=== PATIENT | female | born 1945 | race African-American/Black ===

== ENCOUNTER 2021-06-15 06:00 | Inpatient (IN) | payer OTHER, MEDICAID ==
[~2021-06-15] VITALS: Ht 154.9 cm; Wt 88.5 kg
[2021-06-15 06:00] VITALS: BP 94/48
--- NOTE | 2021-06-15 06:00 | NUR ---
PT JOY FOWLERS. TAKEN TO BED 4
--- NOTE | 2021-06-15 06:00 | NUR ---
JOY FROM [facility] FOR ALOC PATIENT ON SEEN HAD BLOOD SUGAR OF 26 WITH A RECHECK OF 32 PER EMS. AAOX4. GCS 15. PATIENT GIVEN D 10 FROM IV INSERT OF 18G TO THE RIGHT WRIST BY PARAMEDICS. BLOOD SUGAR AT 112 UPON ARRIVAL TO ED. PT. RATES 0/10 ON THE PAIN SCALE AT THIS TIME. DENIES N/V/D; SKIN IS PINK/WARM/DRY; AAOX4 WITH EVEN AND STEADY GAIT; HR EVEN AND REGULAR; PT DENIES ANY FEVER, CP, SOB, OR COUGH AT THIS TIME; VSS; PATIENT POSITIONED FOR COMFORT; HOB ELEVATED; BEDRAILS UP X2; BED DOWN. ER MD MADE AWARE OF PT STATUS. PMH: DM, ACUTE ENCEPHALOPATHY, CHF, HTN, DYSPHAGIA, ACUTE RESPIRATORY FAILURE ALLERGIES: PENICILLINS
--- NOTE | 2021-06-15 06:00 | NUR ---
Dr. Petty examining patient.
--- NOTE | 2021-06-15 06:10 | NUR ---
LAB AT BEDSIDE
--- NOTE | 2021-06-15 06:16 | NUR ---
EKG PERFORMED AT BEDSIDE. EKG READS SINUS RHYTHM @ 54
--- NOTE | 2021-06-15 06:16 | NUR ---
EKG AT BEDSIDE
[2021-06-15 06:20] LABS: BASOPHILS % (AUTO) 0.3 % (0.0-2.0); EOSINOPHILS % (AUTO) 0.6 % (0.0-4.0); HEMOGLOBIN 9.7 g/dL (12.0-16.0); LYMPHOCYTES # (AUTO) 0.8 K/uL (2.5-16.5); LYMPHOCYTES % (AUTO) 15.1 % (20.5-51.1); MEAN CORPUSCULAR HEMOGLOBIN 31 pg (27-31); MEAN CORPUSCULAR HGB CONC 31 g/dL (33-37); MEAN CORPUSCULAR VOLUME 97.9 fL (80-94); MONOCYTES # (AUTO) 0.4 K/uL (0.8-1.0); MONOCYTES % (AUTO) 6.6 % (1.7-9.3); NEUTROPHILS # (AUTO) 4.3 K/uL (1.8-7.7); NEUTROPHILS % (AUTO) 77.4 % (42.2-75.2); PLATELET COUNT (AUTO) 153 K/uL (140-450); RED BLOOD CELL COUNT(AUTO) 3.17 MIL/uL (4.20-5.40); RED CELL DISTRIBUTION WIDTH 18.8 % (11.6-13.7); WHITE BLOOD COUNT (AUTO) 5.5 K/uL (4.8-10.8)
--- NOTE | 2021-06-15 06:40 | NUR ---
PT. DESATTING AT 87% ON ROOM AIR, PLACED ON 2L NC. PT. SP02 AT 99% ON 2L NC. PT. STATES "SHE [place] [facility] [place]
--- NOTE | 2021-06-15 06:42 | NUR ---
XRAY AT BEDSIDE
[2021-06-15 06:51] LABS: ANION GAP 10.1 (8-16); ASPARTATE AMINOTRANSFERASE 30 U/L (15-37); CARBON DIOXIDE 29.6 mmol/L (21-32); CHLORIDE 98 mmol/L (98-107); GLUCOSE 128 mg/dL (74-106); POTASSIUM 3.7 mmol/L (3.5-5.1); SODIUM SERUM 134 mmol/L (136-145); TOTAL BILIRUBIN 0.5 mg/dL (0.0-1.0); UREA NITROGEN, BLOOD 31 mg/dL (7-18)
[2021-06-15 06:58] LABS: CREATININE 4.1 mg/dL (0.6-1.3)
--- NOTE | 2021-06-15 07:10 | NUR ---
REPORT GIVEN TO ELIE ZAZUETA. TRANSFER OF CARE AT THIS TIME.
[2021-06-15] MEDS ORDERED: DEXTROSE 50% 50 ML SYR IVP ONE (07:30)
--- NOTE | 2021-06-15 10:15 | NUR ---
PEDIATRIC URINE CATH 8 FR, PT TOLERATED WELL. URINE WAS SENT TO LAB, LEFT WITH ROSE PHLEB. DIAPER WAS DRY AND CLEAN. 100ML URINE COLLECTED, CLOUDY YELLOW/BROWN.
[2021-06-15] MEDS ORDERED: cefTRIAXone 1,000 MG VIAL ONE (10:30)
--- NOTE | 2021-06-15 10:42 | NUR ---
GREG SWABBED AND SENT TO LAB
[2021-06-15 11:18] LABS: BILIRUBIN,URINE NEGATIVE (NEGATIVE); BLOOD, URINE 1+ (NEGATIVE); NITRITE, URINE NEGATIVE (NEGATIVE); PH,URINE 5.5 (5.0-9.0); UGLUCOSE NEGATIVE (NEGATIVE)
[2021-06-15 11:31] LABS: APPEARANCE,URINE CLOUDY (CLEAR); COLOR,URINE BROWN (YELLOW)
[2021-06-15 11:40] LABS: LEUKOCYTE ESTERASE ,URINE 2+ (NEGATIVE)
[2021-06-15 11:42] LABS: WBC,URINE TOO MANY TO COUNT /HPF (0-5)
[2021-06-15 11:43] LABS: URINE AMORPHOUS URATE 2+ /HPF (None Seen)
[2021-06-15] MEDS ORDERED: ONDANSETRON 4 MG/2 ML VIAL IVP PRN (12:15)
[2021-06-15] MEDS ORDERED: ACETAMINOPHEN 325 MG TAB PO PRN (12:15)
[2021-06-15] MEDS ORDERED: DOCUSATE SODIUM 100 MG GELCAP PO PRN (12:15)
[2021-06-15] MEDS ORDERED: ZOLPIDEM 5 MG TAB PO PRN (12:15)
[2021-06-15] MEDS ORDERED: LORazepam 2 MG/ML VIAL IM/IVP PRN (12:15)
[2021-06-15] MEDS ORDERED: MORPHINE SULFATE 2 MG/ML SYR IVP PRN (12:15)
--- NOTE | 2021-06-15 12:23 | NUR ---
PT EATING LUNCH AT THIS TIME.
[2021-06-15 12:36] LABS: PROTHROMBIN TIME 12.2 secs (10.8-13.4)
[2021-06-15] MEDS: NACL 0.9% 1,000 ML IV SCH ×2 (12:39→22:30)
[2021-06-15] MEDS ORDERED: FUROSEMIDE 20 MG/2 ML VIAL IVP SCH (13:00)
[2021-06-15] MEDS ORDERED: INSULIN LISPRO SLIDING SCALE 100 UNITS/ML VIAL SUBQ PRN (13:05)
[2021-06-15] MEDS ORDERED: DEXTROSE 50% 50 ML SYR IVP PRN (13:05)
[2021-06-15 13:13] LABS: CHOL/HDL RATIO 2.1 (1-4.5); FREE T4 (FREE THYROXINE) 0.72 ng/dL (0.76-1.46); MAGNESIUM 2.3 mg/dL (1.8-2.4); PHOSPHORUS 4.1 mg/dL (2.5-4.9); THYROID STIMULATING HORMONE 12.81 uIU/mL (0.34-3.74)
--- NOTE | 2021-06-15 13:21 | NUR ---
Called [facility] and spoke to Julianne to obtain plate former information. Julianne gave me [facility] in [place] phone number to call. Glass Laminating Operator- Dr. Joel
--- NOTE | 2021-06-15 13:21 | NUR ---
Pt returned from CT scan.
[2021-06-15] MEDS: DOCUSATE SODIUM 100 MG GELCAP PO SCH (13:36)
--- NOTE | 2021-06-15 14:40 | NUR ---
PT DIAPER WAS CHANGED, PT IS CLEAN AND DRY AT THIS TIME.
--- NOTE | 2021-06-15 15:15 | NUR ---
Dr. Arredondo is evaluating the patient at bedside.
[2021-06-15 15:20] VITALS: BP 147/74
--- NOTE | 2021-06-15 15:23 | NUR ---
RECEIVED REPORT FROM ER NURSE FOR CONTINUITY OF CARE PLAN.
--- NOTE | 2021-06-15 15:24 | NUR ---
Patient will be admitted to care of SUKHDEV DOVER. Admited to TELEMETRY. Will go to room 113. Belongings list completed. Report to ABDIAZIZ DELGADILLO.
--- NOTE | 2021-06-15 15:40 | NUR ---
PT ARRIVED TO FLOOR VIA GURNEY. PT A&OX4. VITALS: TEMP 97.1, BP 147/74, HR 79, RR 16, O2 92 VIA 2L NC. PT ORIENTED TO ROOM, CALL LIGHT, BED, AND BATHROOM. PT ABLE TO MAKE NEEDS KNOWN.
[2021-06-15] MEDS ORDERED: MAGNESIUM CITRATE 300 ML BTL PO SCH (15:50)
[2021-06-15] MEDS: BLOOD GLUCOSE MONITORING 1 DEV DEV FS SCH ×2 (16:27→21:06)
--- NOTE | 2021-06-15 17:30 | NUR ---
DIALYSIS NURSE PRESENT IN ROOM.
--- NOTE | 2021-06-15 18:20 | NUR ---
PT STATES 10/10 ARTHRITIS PAIN IN RIGHT LEG, ARM, AND HAND. PT MEDICATED.
[2021-06-15] MEDS: HYDROcodone/APAP 5/325 MG 1 TAB TAB PO PRN (18:24)
--- NOTE | 2021-06-15 19:30 | NUR ---
ENDORSED PT TO TAKE AWAY WORKER NURSE. PT STABLE AT THIS TIME.
--- NOTE | 2021-06-15 19:30 | NUR ---
RECEIVED PATIENT FROM AM NURSE FOR CONTINUITY OF CARE. PATIENT IS A/A/O X4. RESPIRATORY EVEN AND UNLABORED, ON 2L NC, NO SIGN OF DISTRESS NOTED. SKIN WARM, DRY, NON DIAPHORETIC. IV ON RIGHT WRIST 18G, INTACT AND PATENT, IS INFUSING FLUID ORDER. TUNNEL CATH ON RIGHT ARM FOR HD, PATIENT ON HD MONITOR WITH DIALYSIS NURSE AT BEDSIDE. PLAN OF CARE DISCUSSED, PATIENT VERBALIZED UNDERSTANDING. HOB ELEVATED. PRECAUTION IN PLACE. CALL LIGHT WITHIN REACH. WILL CONTINUE TO MONITOR.
[2021-06-15 20:00] VITALS: BP 141/66
--- NOTE | 2021-06-15 20:30 | NUR ---
DIALYSIS COMPLETED, 2.5L OUTPUT, PATIENT IS NO SIGN OF DISTRESS NOTED. PRECAUTION IN PLACE. CALL LIGHT WITHIN REACH. WILL CONTINUE TO MONITOR.
[2021-06-15] MEDS ORDERED: APIXABAN 2.5 MG TAB PO SCH (21:00)
[2021-06-15] MEDS ORDERED: GABAPENTIN 300 MG CAP PO SCH (21:00)
--- NOTE | 2021-06-15 21:06 | NUR ---
BLOOD SUGAR CHECK 141, NO INSULIN GIVEN. SCHEDULE MEDICATIONS GIVEN WITH EDUCATION, PATIENT VERBALIZED UNDERSTANDING. PATIENT TOLERATED WELL. PRECAUTION IN PLACE. CALL LIGHT WITHIN REACH. WILL CONTINUE TO MONITOR.
[2021-06-15] MEDS: APIXABAN 2.5 MG TAB PO SCH (21:07)
[2021-06-15] MEDS: ATORVASTATIN 20 MG TAB PO SCH (21:07)
[2021-06-15] MEDS: GABAPENTIN 100 MG CAP PO SCH (21:07)
--- NOTE | 2021-06-15 23:20 | NUR ---
PATIENT TRANSFER TO CT BY FILIPE.
--- NOTE | 2021-06-15 23:36 | NUR ---
PATIENT RETURNED FROM CT SCAN.
[2021-06-16] VITALS: BP 123/63
[2021-06-16] MEDS: HYDROcodone/APAP 5/325 MG 1 TAB TAB PO PRN (01:42)
--- NOTE | 2021-06-16 01:42 | NUR ---
PATIENT COMPLAINS ARTHRITIS PAIN ON HER SHOULDER AND LEGS, PAIN MEDICATION PRN GIVEN WITH EDUCATION, PATIENT VERBALIZED UNDERSTANDING, NO SIGN OF DISTRESS NOTED. PRECAUTION IN PLACE. CALL LIGHT WITHIN REACH. WILL CONTINUE TO MONITOR.
--- NOTE | 2021-06-16 01:47 | NUR ---
PATIENT'S DAUGHTER- ALDO CALLED TO UPDATE PATIENT' CONDITION, ALL QUESTIONS WERE ANSWERED, WILL CONTINUE TO UPDATE.
--- NOTE | 2021-06-16 02:42 | NUR ---
PATIENT IS SLEEPING, CHEST RISE AND FALL, NO SIGN OF DISTRESS NOTED. PRECAUTION IN PLACE. CALL LIGHT WITHIN REACH. WILL CONTINUE TO MONITOR.
[2021-06-16 04:00] VITALS: BP 96/55
--- NOTE | 2021-06-16 04:00 | NUR ---
ROUND CHECK. PATIENT IS SLEEPING, CHEST RISE AND FALL, O2 SAT 100%, NO SIGN OF DISTRESS NOTED. PRECAUTION IN PLACE. CALL LIGHT WITHIN REACH. WILL CONTINUE TO MONITOR.
[2021-06-16] MEDS: BLOOD GLUCOSE MONITORING 1 DEV DEV FS SCH ×4 (06:46→21:00)
--- NOTE | 2021-06-16 06:46 | NUR ---
BLOOD SUGAR CHECK 108, NO INSULIN NEED TO COVER. PATIENT IS AWAKE, RESTING IN BED. NO SIGN OF DISTRESS NOTED. PRECAUTION IN PLACE. CALL LIGHT WITHIN REACH. WILL CONTINUE TO MONITOR.
[2021-06-16 07:02] LABS: ANION GAP 8.7 (8-16); CHLORIDE 100 mmol/L (98-107); CREATININE 3.6 mg/dL (0.6-1.3); GLUCOSE 115 mg/dL (74-106); POTASSIUM 3.7 mmol/L (3.5-5.1); SODIUM SERUM 135 mmol/L (136-145); UREA NITROGEN, BLOOD 25 mg/dL (7-18)
[2021-06-16 07:15] LABS: PHOSPHORUS 3.5 mg/dL (2.5-4.9)
--- NOTE | 2021-06-16 07:20 | NUR ---
ENDORSED PATIENT TO AM NURSE FOR CONTINUITY OF CARE. PATIENT IS STABLE.
--- NOTE | 2021-06-16 07:25 | NUR ---
RECEIVE REPORT FROM RECEPTION, PT. IN BED AWAKE AND ALERT COOPERATE AND FOLLOW COMMAND, SKIN DRY AND WARM TO TOUCH , DENIED PAIN IV ON RT WRIST #18 INFUSSING NS AT 100ML/HR .
[2021-06-16 07:26] LABS: BASOPHILS # (AUTO) 0.1 K/uL (0.00-0.22); BASOPHILS % (AUTO) 0.9 % (0.0-2.0); EOSINOPHILS # (AUTO) 0.1 K/uL (0-0.4); EOSINOPHILS % (AUTO) 1.7 % (0.0-4.0); HEMATOCRIT 28.4 % (36-48); LYMPHOCYTES # (AUTO) 0.9 K/uL (2.5-16.5); LYMPHOCYTES % (AUTO) 12.1 % (20.5-51.1); MEAN CORPUSCULAR HEMOGLOBIN 31 pg (27-31); MEAN CORPUSCULAR HGB CONC 32 g/dL (33-37); MEAN CORPUSCULAR VOLUME 97.5 fL (80-94); MONOCYTES # (AUTO) 0.5 K/uL (0.8-1.0); MONOCYTES % (AUTO) 6.3 % (1.7-9.3); NEUTROPHILS # (AUTO) 5.8 K/uL (1.8-7.7); PLATELET COUNT (AUTO) 172 K/uL (140-450); RED BLOOD CELL COUNT(AUTO) 2.91 MIL/uL (4.20-5.40); RED CELL DISTRIBUTION WIDTH 18.1 % (11.6-13.7); WHITE BLOOD COUNT (AUTO) 7.3 K/uL (4.8-10.8)
[2021-06-16 08:00] VITALS: BP 102/57
--- NOTE | 2021-06-16 09:07 | NUR ---
PATIENT HAS BEEN SCREENED AND CATEGORIZED HIGH NUTRITION RISK. PATIENT WILL BE SEEN WITHIN 1-2 DAYS OF ADMISSION. 06/16/21-06/17/21 [facility] CONSULT FOR WOUNDS/PRESSURE INJURIES HAS BEEN RECEIVED AND [facility] REFERRAL FOR UNCONTROLLED DIABETES WAS ALSO RECEIVED. EVER [address]
[2021-06-16] MEDS: NACL 0.9% 1,000 ML IV SCH ×3 (09:09→23:19)
[2021-06-16] MEDS: DOCUSATE SODIUM 100 MG GELCAP PO SCH (09:10)
[2021-06-16] MEDS: GABAPENTIN 100 MG CAP PO SCH ×2 (09:12→20:53)
[2021-06-16] MEDS: allopurinoL 100 MG TAB PO SCH (09:13)
[2021-06-16] MEDS: DULoxetine 30 MG CAPDR PO SCH (09:15)
[2021-06-16] MEDS: APIXABAN 2.5 MG TAB PO SCH ×2 (09:17→20:53)
--- NOTE | 2021-06-16 10:00 | NUR ---
AWAKK ALERT FOLLOW CAMMAND. EEG BEING DONE.
[2021-06-16 12:00] VITALS: BP 111/58
--- NOTE | 2021-06-16 13:13 | NUR ---
RECEIVED TORB FOR RENAL AND CCHO 60GM DIET WITH NEPHRO-DAVE DAILY FROM DR. SANTIZO.
--- NOTE | 2021-06-16 14:40 | NUR ---
06/16/21 RD INITIAL ASSESSMENT COMPLETED PLEASE REFER TO NUTRITION ASSESSMENT UNDER CARE ACTIVITY FOR ESTIMATED NUTRITIONAL NEEDS. 1. PENDING ST EVALUATION 2. RECOMMEND RENAL AND CCHO 60GM DIETARY RESTRICTIONS TOLERATED 3. RECOMMEND NEPHRO-DAVE ONCE DAILY 4. RD TO FOLLOW-UP 3-5 DAYS, MODERATE RISK EVER FRANKLIN, RD
--- NOTE | 2021-06-16 15:33 | NUR ---
DR. ACEVEDO AND PATIENT FAMILY AT BED SIDE. PT. DAUGHTER MISUNDERSTAND THAT PT WAS DISCHARGE WITH OUT INFOR HER . THE MATTER WAS CLEAR THE FAMILY IS UNDER STAND AND HAPPY NOW.
--- NOTE | 2021-06-16 17:00 | NUR ---
BLOOD GLUCOSE 143 NO INSULIN GIVEN.
[2021-06-16] MEDS ORDERED: SENNA 8.6 MG TAB PO SCH (17:10)
--- NOTE | 2021-06-16 18:30 | NUR ---
DINNER TOOK ABOUT 40% FEEL SLEEPY.
--- NOTE | 2021-06-16 19:20 | NUR ---
HER CONDITION WITH IN NORMAL LIMITMREPORT GIVE TO JOHAN DELGADILLO.
--- NOTE | 2021-06-16 19:21 | NUR ---
RECEIVED PATIENT FROM AM NURSE FOR CONTINUITY OF CARE. PATIENT IS SLEEPING, AROUSABLE TO VOICE. RESPIRATORY EVEN AND UNLABORED, ON 2L OXYGEN NC. NO SIGN OF DISTRESS NOTED. SKIN WARM, DRY, NON DIAPHORETIC. IV ON RIGHT WRIST 18G, INTACT AND PATENT, IS INFUSING FLUID ORDER. TUNNEL CATH NOTED ON RIGHT CHEST FOR HD. PATIENT DENIES ANY PAIN OR DISCOMFORT. ABLE TO MAKE NEEDS KNOWN. PLAN OF CARE DISCUSSED. PRECAUTION IN PLACE. CALL LIGHT WITHIN REACH. WILL CONTINUE TO MONITOR.
[2021-06-16 20:00] VITALS: BP 112/53
[2021-06-16] MEDS: ATORVASTATIN 20 MG TAB PO SCH (20:52)
--- NOTE | 2021-06-16 21:00 | NUR ---
BLOOD SUGAR CHECK 105, NO INSULIN NEEDS TO COVER. SCHEDULE MEDICATION GIVEN WITH EDUCATION. PATIENT VERBALIZED UNDERSTANDING. PATIENT TOLERATED WELL. PRECAUTION IN PLACE. CALL LIGHT WITHIN REACH. WILL CONTINUE TO MONITOR.
--- NOTE | 2021-06-16 22:00 | NUR ---
ROUND CHECK. PATIENT IS SLEEPING, CHEST RISE AND FALL, NO SIGN OF RESPIRATORY DISTRESS NOTED. PRECAUTION IN PLACE. CALL LIGHT WITHIN REACH. WILL CONTINUE TO MONITOR.
[2021-06-17] VITALS: BP 122/72
--- NOTE | 2021-06-17 | NUR ---
PATIENT IS SLEEPING, CHEST RISE AND FALL. NO SIGN OF DISTRESS NOTED. PRECAUTION IN PLACE. CALL LIGHT WITHIN REACH. WILL CONTINUE TO MONITOR.
--- NOTE | 2021-06-17 02:00 | NUR ---
PATIENT IS SLEEPING, CHEST RISE AND FALL, NO SIGN OF RESPIRATORY DISTRESS NOTED. HOB ELEVATED. CALL LIGHT WITHIN REACH. WILL CONTINUE TO MONITOR.
[2021-06-17 04:00] VITALS: BP 114/58
--- NOTE | 2021-06-17 04:00 | NUR ---
PATIENT IS SLEEPING, CHEST RISE AND FALL, NO SIGN OF RESPIRATORY DISTRESS NOTED, AROUSABLE TO VOICE. HOB ELEVATED. CALL LIGHT WITHIN REACH. WILL CONTINUE TO MONITOR
[2021-06-17 06:07] LABS: HEPATITIS A ANTIBODY IGM Negative (Negative); HEPATITIS B CORE AB TOTAL Negative (Negative); HEPATITIS B SURFACE ANTIBODY Non Reactive (.); HEPATITIS B SURFACE ANTIGEN Negative (Negative)
--- NOTE | 2021-06-17 06:30 | NUR ---
BLOOD SUGAR CHECK 64, PATIENT IS AWAKE, NO SIGN OF DISTRESS NOTED. 2 BOTTLE OF APPLE JUICE GIVEN, PATIENT TOLERATED WELL. WILL CONTINUE TO MONITOR.
[2021-06-17 07:00] LABS: BASOPHILS % (AUTO) 0.3 % (0.0-2.0); EOSINOPHILS # (AUTO) 0.1 K/uL (0-0.4); EOSINOPHILS % (AUTO) 1.6 % (0.0-4.0); HEMOGLOBIN 9.6 g/dL (12.0-16.0); LYMPHOCYTES # (AUTO) 0.9 K/uL (2.5-16.5); LYMPHOCYTES % (AUTO) 14.2 % (20.5-51.1); MEAN CORPUSCULAR HEMOGLOBIN 31 pg (27-31); MEAN CORPUSCULAR HGB CONC 31 g/dL (33-37); MEAN CORPUSCULAR VOLUME 97.8 fL (80-94); MONOCYTES # (AUTO) 0.5 K/uL (0.8-1.0); NEUTROPHILS # (AUTO) 5.2 K/uL (1.8-7.7); NEUTROPHILS % (AUTO) 76.9 % (42.2-75.2); PLATELET COUNT (AUTO) 143 K/uL (140-450); RED BLOOD CELL COUNT(AUTO) 3.16 MIL/uL (4.20-5.40); RED CELL DISTRIBUTION WIDTH 18.2 % (11.6-13.7); WHITE BLOOD COUNT (AUTO) 6.7 K/uL (4.8-10.8)
--- NOTE | 2021-06-17 07:02 | NUR ---
RECHECK BLOOD SUGAR 84, TRENDING UP. PATIENT ASKS FOR CRANBERRY JUICE, 2 BOTTLE GIVEN, NO SIGN OF DISTRESS NOTED. PRECAUTION IN PLACE. CALL LIGHT WITHIN REACH. WILL CONTINUE TO MONITOR.
--- NOTE | 2021-06-17 07:05 | NUR ---
ENDORSED PATIENT TO AM NURSE FOR CONTINUITY OF CARE. PATIENT IS STABLE.
--- NOTE | 2021-06-17 07:08 | NUR ---
RECEIVED REPORT FROM ORCHARD WORKER NURSE. NIGHT NURSE REPORTS PT STABLE, PT ON 2 L OXYGEN, AA&O X 4 WITH PERIODS OF CONFUSION, LAST BLOOD GLUCOSE WAS 84 @ 0700, LAST BM THIS MORNING, HAS IV IN RIGHT WRIST 18 GAUGE NS AT 40 ML, LINE IS PATENT. PT ALSO HAS RIGHT TUNNEL CATH IN RIGHT SIDE OF THE CHEST. NO URINE PRODUCED (ON DIALYSIS). ECHO SHOWED MILD DILATION IN LEFT VENTRICLE, LVEF AT 25%.
[2021-06-17 07:14] LABS: ANION GAP 12.4 (8-16); CARBON DIOXIDE 27.6 mmol/L (21-32); CHLORIDE 99 mmol/L (98-107); GLUCOSE 79 mg/dL (74-106); SODIUM SERUM 135 mmol/L (136-145); UREA NITROGEN, BLOOD 31 mg/dL (7-18)
[2021-06-17] MEDS: BLOOD GLUCOSE MONITORING 1 DEV DEV FS SCH ×4 (07:18→20:41)
[2021-06-17 07:21] LABS: MAGNESIUM 2.1 mg/dL (1.8-2.4); PHOSPHORUS 4.1 mg/dL (2.5-4.9)
--- NOTE | 2021-06-17 07:58 | NUR ---
RECEIVED REPORT FROM PHYSICAL THERAPIST. SHE STATES PT IS VERY DROWSY AND NEEDS ASSISTANCE TO SIT UP. SHE ALSO REPORTED BP OF 97/48. PHYSICAL THERAPIST UNABLE TO PERFORM PHYSICAL THERAPY AND WILL ATTEMPT LATER . WILL REASSESS VITALS AND CONTINUE TO MONITOR.
[2021-06-17] MEDS: DULoxetine 30 MG CAPDR PO SCH (08:57)
[2021-06-17] MEDS: GABAPENTIN 100 MG CAP PO SCH ×2 (08:57→20:37)
[2021-06-17] MEDS: VIT-B COMP/VIT-C/FOLIC ACID 1 TAB PO SCH (08:57)
[2021-06-17] MEDS: DOCUSATE SODIUM 100 MG GELCAP PO SCH (08:57)
[2021-06-17] MEDS: allopurinoL 100 MG TAB PO SCH (08:58)
[2021-06-17] MEDS: APIXABAN 2.5 MG TAB PO SCH ×2 (09:19→20:33)
--- NOTE | 2021-06-17 09:22 | NUR ---
ADMINISTERED 0900 MEDS. PATIENT TOLERATED WELL. WILL CONTINUE TO MONITOR.
--- NOTE | 2021-06-17 11:00 | NUR ---
PT ASKED TO BE CHANGED, HAD A LARGE BM. PT WAS CLEANED AND WOUND ON SACRUM WAS CLOSED AND CLEANED. PT STABLE. WILL CONTINUE TO MONITOR.
[2021-06-17 11:25] VITALS: BP 124/79
--- NOTE | 2021-06-17 11:25 | NUR ---
BLOOD SUGAR 94 MG/DL NO INSULIN COVERAGE GIVEN PT IS AWAKE AND RESTING NO DISTRESS NOTED. WILL CONTINUE TO MONITOR.
[2021-06-17 12:00] VITALS: BP 110/51
--- NOTE | 2021-06-17 12:00 | NUR ---
PATIENT SCHEDULED HEMODIALYSIS ONGOING AT THIS TIME PT IS STABLE.
--- NOTE | 2021-06-17 13:00 | NUR ---
PT WAS ASLEEP. IV PATENT AND RUNNING PER ORDERED. PT STABLE, BREATHING UNLABORED ON 2L NC. Addendum: 06/17/21 at 1856 by Jessy Napier RN RN WILL CONTINUE TO MONITOR.
--- NOTE | 2021-06-17 13:39 | NUR ---
HEMODIALYSIS ONGOING, HEPARIN 23290 UNITS GIVEN BY HEMODIALYSIS NURSE.
--- NOTE | 2021-06-17 15:10 | NUR ---
SPOKE TO DIALYSIS NURSE AND PT HAD 2.5 L OUTPUT. PT TOLERATED WELL, SHE IS TALKING AND DENIES ANY PAIN. WILL CONTINUE TO MONITOR.
[2021-06-17 16:00] VITALS: BP 103/49
--- NOTE | 2021-06-17 17:01 | NUR ---
BLOOD SUGAR 139 MG/DL NO INSULIN COVERAGE GIVEN PT IS RESTING
[2021-06-17] MEDS: NACL 0.9% 1,000 ML IV SCH (18:30)
--- NOTE | 2021-06-17 19:30 | NUR ---
ENDORSED TO NIGHT NURSE FOR CONTINUITY OF CARE.
--- NOTE | 2021-06-17 19:30 | NUR ---
RECEIVED REPORT FROM RN DAYSHIFT NURSE AT BEDSIDE FOR CONTINUITY OF CARE, PT IN STABLE CONDITION. PT IS SITTING UP IN BED AOX3 SHE HAS 2 LITERS VIA N/C. SHE HAS A TUNNEL CATHETER INTACT ON RIGHT UPPER CHEST. PT NOTED WITH NON PITTING EDEMA OF THE LEFT ARM AND BILATERAL LEGS. SHE HAS IV SITE ON RIGHT WRIST 18G RUNNING NORMAL SALINE AT 40MLS/HR. ALL FALLS PRECAUTIONS IN PLACE. PT HAS NO C/OP VOICED AT THIS TIME AND ALL FALLS PRECAUTIONS IN PLACE.
[2021-06-17 20:00] VITALS: BP 123/62
--- NOTE | 2021-06-17 20:20 | NUR ---
PT LYING IN BED, SHE IS AOX3 02 RUNNING AT 2LITERS VIA N/C. FINGERSTICK IS 148, NO NEED FOR HUMALOG COVERAGE. OTHER V/S FOLLOWS: T 99.6 P 95 R 16 B/P 123/62 02 98% WITH 2 LITERS VIA N/C. NORMAL SALINE CONTINUES AT 40MLS/HR. ALL FALLS PRECAUTIONS IN PLACE.
[2021-06-17] MEDS: ATORVASTATIN 20 MG TAB PO SCH (20:37)
[2021-06-17] MEDS ORDERED: traMADol 50 MG TAB PO PRN ×2 (20:50→21:15)
--- NOTE | 2021-06-17 21:45 | NUR ---
PT GIVEN ORDERED ELIQUIS, LIPITOR AND NEURONTIN. EDUCATION REGARDING PT MEDICATION PROVIDED AT BEDSIDE, PT VERBALIZED UNDERSTANDING. PT DECLINED COOLING MEASURES FOR INCREASED TEMPERATURE. PT ALSO C/O GENERALIZED PAIN AND REQUESTED TRAMADOL 50MG. PT DECLINED OFFERED NORCO 5/325MG SHE SAID IT WAS TOO STRONG. WILL CONTACT PRIMARY CARE NURSE PRACTITIONER MD FOR PRIMARY MD SANTIZO. ALL FALLS PRECAUTIONS IN PLACE.
--- NOTE | 2021-06-17 22:00 | NUR ---
TEXTED MD CAMPBELL REMOTE RECRUITER FOR ALVERTO RIDER TO ORDER TRAMADOL 50MG BID. GIVEN PT REQUEST PAIN MEDICATION WELL TURNED, CHANGED AND REPOSITIONED. SHE HAD A SMALL LOOSE BOWEL MOVEMENT. ALL FALLS PRECAUTIONS IN PLACE.
--- NOTE | 2021-06-17 22:30 | NUR ---
PT ASLEEP IN BED N/S RUNNING AT 40MLS/HR ORDERED N/C IN PLACE, PT HAS NO S/S OF PAIN OR DISTRESS NOTED.
[2021-06-18] VITALS: BP 124/58
[2021-06-18] MEDS: HYDROcodone/APAP 5/325 MG 1 TAB TAB PO PRN (00:31)
--- NOTE | 2021-06-18 00:37 | NUR ---
PT IN BED, SHE DECLINED TO BE REPOSITIONED IN BED V/S FOLLOWS: T 97.8 P 95 R 16 B/P 124/58 02 97% WITH 2 LITERS VIA N/C. PT ALSO C/O MODERATE PAIN IN HER FEET AND HEELS. GIVEN 1 TAB NORCO 5/325MG. DECLINED ANY SNACKS AT THIS TIME, ALL FALLS PRECAUTIONS IN PLACE.
--- NOTE | 2021-06-18 02:00 | NUR ---
PT WAS REPOSITIONED IN BED NO C/O VOICED FLUIDS RUNNING ORDERED, ALL ORDERED PRECAUTIONS IN PLACE.
--- NOTE | 2021-06-18 02:00 | NUR ---
PT SITTING UP IN BED, HE SAID HE WAS COMFORTABLE AND DECLINED TO LAY DOWN AT THIS TIME. Addendum: 06/18/21 at 0708 by Kat Thoa RN WRONG CHART/WRONG PT
[2021-06-18 04:00] VITALS: BP 122/52
--- NOTE | 2021-06-18 06:00 | NUR ---
PT WAS TURNED AND REPOSITIONED IN BED, NO C/O VOICED. N/S RUNNING AT 40MLS/HR ORDERED. IV SITE INTACT ALL ORDERED PRECAUTIONS IN PLACE.
[2021-06-18 06:57] LABS: BASOPHILS # (AUTO) 0.2 K/uL (0.00-0.22); BASOPHILS % (AUTO) 3.8 % (0.0-2.0); EOSINOPHILS # (AUTO) 0.1 K/uL (0-0.4); EOSINOPHILS % (AUTO) 1.1 % (0.0-4.0); HEMATOCRIT 28.3 % (36-48); HEMOGLOBIN 8.9 g/dL (12.0-16.0); LYMPHOCYTES # (AUTO) 0.6 K/uL (2.5-16.5); LYMPHOCYTES % (AUTO) 9.6 % (20.5-51.1); MEAN CORPUSCULAR HEMOGLOBIN 31 pg (27-31); MEAN CORPUSCULAR HGB CONC 31 g/dL (33-37); MEAN CORPUSCULAR VOLUME 97.3 fL (80-94); MONOCYTES # (AUTO) 0.3 K/uL (0.8-1.0); MONOCYTES % (AUTO) 4.2 % (1.7-9.3); NEUTROPHILS # (AUTO) 4.9 K/uL (1.8-7.7); NEUTROPHILS % (AUTO) 81.3 % (42.2-75.2); RED BLOOD CELL COUNT(AUTO) 2.91 MIL/uL (4.20-5.40); RED CELL DISTRIBUTION WIDTH 17.9 % (11.6-13.7); WHITE BLOOD COUNT (AUTO) 6.1 K/uL (4.8-10.8)
[2021-06-18 07:03] LABS: ANION GAP 8.4 (8-16); CARBON DIOXIDE 28.7 mmol/L (21-32); CHLORIDE 99 mmol/L (98-107); CREATININE 3.6 mg/dL (0.6-1.3); GLUCOSE 120 mg/dL (74-106); POTASSIUM 4.1 mmol/L (3.5-5.1); SODIUM SERUM 132 mmol/L (136-145); UREA NITROGEN, BLOOD 28 mg/dL (7-18)
--- NOTE | 2021-06-18 07:15 | NUR ---
RECEIVED PATIENT FROM COLLECTION MANAGER NURSE AT BEDSIDE FOR CONTINUITY OF CARE. PATIENT SLEEPING COMFORTABLY IN BED, RESPIRATIONS EVEN AND UNLABORED ON 2L O2 VIA NC. FLACC-0. IV SITE INTACT, ASYMPTOMATIC, PATENT, INFUSING IVF WELL. BED ALARM ON, BED ON LOWEST SETTING WITH BRAKES ON, CALL LIGHT WITHIN REACH, WILL CONTINUE TO MONITOR PATIENT.
[2021-06-18 07:35] LABS: PLATELET COUNT (AUTO) 127 K/uL (140-450)
[2021-06-18] MEDS: BLOOD GLUCOSE MONITORING 1 DEV DEV FS SCH ×2 (07:36→12:21)
--- NOTE | 2021-06-18 08:10 | NUR ---
PATIENT'S DAUGHTER CALLED. UPDATED HER ON PATIENT'S STATUS. SHE VERBALIZED UNDERSTANDING AND SAID SHE WILL CALL BACK LATER TO CHECK UP ON HER.
--- NOTE | 2021-06-18 08:15 | NUR ---
REPORT GIVEN TO RN HANS AT BEDSIDE FOR CONTINUITY OF CARE. PATIENT SLEEPING COMFORTABLY IN BED.
--- NOTE | 2021-06-18 08:20 | NUR ---
REPORT RECEIVED FROM HARVINDER RN, PT AAOX2-3, SPEAKS CLEARLY, OCCASIONALLY CONFUSED, RESP EVEN UNLABORED ON 2L O2 NC, SKIN WARM DRY COLOR WNL, CAP REFILL <3SEC, PIV 18G TO R WRIST, NS AT 40ML/HR, SITE WNL, RIGHT SUBCLAVIAN HD TUNNEL CATH IN PLACE, WITE CDI, ABD SOFT, NON DISTENDED, NON TENDER, PLAN OF CARE REVIEWED, PT DENIES ANY IMMEDIATE NEEDS, ALL SAFETY MEASURES IN PLACE, WILL CONTINUE TO MONITOR.
[2021-06-18 08:30] VITALS: BP 99/55
[2021-06-18] MEDS: VIT-B COMP/VIT-C/FOLIC ACID 1 TAB PO SCH (09:02)
[2021-06-18] MEDS: DULoxetine 30 MG CAPDR PO SCH (09:02)
[2021-06-18] MEDS: DOCUSATE SODIUM 100 MG GELCAP PO SCH (09:02)
[2021-06-18] MEDS: GABAPENTIN 100 MG CAP PO SCH (09:04)
[2021-06-18] MEDS: allopurinoL 100 MG TAB PO SCH (09:04)
[2021-06-18] MEDS: APIXABAN 2.5 MG TAB PO SCH (09:11)
--- NOTE | 2021-06-18 09:13 | NUR ---
PT SITTING UP EATING BREAKFAST, AM MEDS GIVEN, PT SWALLOWS PILLS WHOLE WITHOUT PROBLEM.
[2021-06-18] MEDS ORDERED: GABA300C1 PO (09:25)
[2021-06-18] MEDS ORDERED: APIX2.5 PO (09:25)
[2021-06-18] MEDS ORDERED: TRAM50TA3 PO (09:25)
[2021-06-18] MEDS ORDERED: LAS20I PO (09:25)
[2021-06-18] MEDS ORDERED: IV rocephin IV (09:26)
[2021-06-18] MEDS ORDERED: ATOR40TA PO (09:27)
[2021-06-18] MEDS ORDERED: DULO30EC68 PO (09:28)
--- NOTE | 2021-06-18 11:00 | NUR ---
CALLED [facility] AND SPOKE TO MANNY FOR TRANSPORTATION OF THE PATIENT, SHE TRANSFERRED ME TO TRANSPORTATION DEPT. SHE SAID SOMEONE WILL CONTACT US FOR ETA.
[2021-06-18 12:00] VITALS: BP 112/52
--- NOTE | 2021-06-18 12:05 | NUR ---
BEDSIDE GLUCOSE 113, NO INSULIN NEEDED PER SLIDING SCALE
--- NOTE | 2021-06-18 12:24 | NUR ---
FOLLOW UP TRANSPORTATION AND RESERVATION #[id number], TACTICAL AIR DEFENSE CONTROLLER TIME WILL BE 2:30 PM, NOTIFIED ELIE MAXWELL AND MADE AWARE.
--- NOTE | 2021-06-18 12:50 | NUR ---
PHONE CALL MADE TO DAUGHTER ALDO CARRASQUILLO TO INFORM HER OF DC ORDER AND SCHEDULED TRANSFER BACK TO [facility] [place] AT 1430 VIA [facility].
--- NOTE | 2021-06-18 13:02 | NUR ---
SMALL BM X1, SACRAL WND PHOTO TAKEN, BED BATH GIVEN.
--- NOTE | 2021-06-18 14:33 | NUR ---
REPORT CALLED TO [facility]. AWAITING [facility] TRANSPORT
--- NOTE | 2021-06-18 14:45 | NUR ---
PT SITTING UP IN BED WATCHING TV, PT DENIES PAIN OR DISCOMFORT, AWAITING TRANSPORT BACK TO [facility] [place] [place], PT AGREE WITH PLAN.
--- NOTE | 2021-06-18 15:06 | NUR ---
[facility] HERE TO TAKE PT TO [facility] [place] [facility], ALL BELONGINGS SENT WITH PT.
== END 2021-06-18 15:00 | DRG 637 ==
LOC: MED 06:00 → MTU 12:14
PROVIDERS: ADMIT Family Medicine; ATTEND Family Medicine
DX: E11.649 Type 2 diabetes mellitus with hypoglycemia without coma (principal); G93.41 Metabolic encephalopathy; I50.43 Acute on chronic combined systolic (congestive) and diastolic (congestive) heart failure; N39.0 Urinary tract infection, site not specified; I13.2 Hypertensive heart and chronic kidney disease with heart failure and with stage 5 chronic kidney disease, or end stage renal disease; E87.1 Hypo-osmolality and hyponatremia; J98.11 Atelectasis; I48.92 Unspecified atrial flutter; N17.0 Acute kidney failure with tubular necrosis; N18.6 End stage renal disease; G96.9 Disorder of central nervous system, unspecified; D63.8 Anemia in other chronic diseases classified elsewhere; I25.10 Atherosclerotic heart disease of native coronary artery without angina pectoris; F03.90 Unspecified dementia, unspecified severity, without behavioral disturbance, psychotic disturbance, mood disturbance, and anxiety; E03.9 Hypothyroidism, unspecified; E66.9 Obesity, unspecified; I48.91 Unspecified atrial fibrillation; E78.5 Hyperlipidemia, unspecified; D64.9 Anemia, unspecified; Z20.822 Contact with and (suspected) exposure to COVID-19; Z99.2 Dependence on renal dialysis; Z88.0 Allergy status to penicillin; Z68.36 Body mass index [BMI] 36.0-36.9, adult
CPT/HCPCS: 36415; 70450; 71045; 80048; 80053; 81001; 82150; 82948; 83036; 83605; 83690; 83735; 83880; 84100; 84439; 84443; 84484; 85025; 85610; 85730; 86704; 86706; 86708; 86709; 86803; 87040; 87081; 87086; 87340; 90935; 93005; 96365; 96375; 97110; 97163-GP; 97530; 99285; J0696; J1644; J1815; J1940; J7060

== ENCOUNTER 2021-07-23 08:39 | Inpatient (IN) | payer OTHER, MEDICAID, SELFPAY ==
[~2021-07-23] VITALS: Ht 172.7 cm; Wt 66.7 kg
[~2021-07-23 08:39] MED LIST: APIX2.5 PO; ATOR40TA PO; DULO30EC68 PO; GABA300C1 PO; IV rocephin IV; LAS20I PO; TRAM50TA3 PO
--- NOTE | 2021-07-23 08:44 | NUR ---
PT TAKEN TO ER BED 1.
[2021-07-23 08:46] VITALS: BP 142/65
--- NOTE | 2021-07-23 08:54 | NUR ---
DR. LE AT PT BEDSIDE FOR FURTHER EVALUATION.
[2021-07-23] MEDS ORDERED: LEVOFLOXACIN 500 MG/D5W PREMIX 100 ML IV ONE (09:00)
--- NOTE | 2021-07-23 09:08 | NUR ---
75 Y/O FEMALE BIBA FROM [place] WITH C/O ALOC X2HRS. PER EMS STATES BLOOD SUGAR AT FACILITY IN 50S PT GIVEN GLUCAGON, UPON ARRIVAL PER EMT BS 58 ON SCENE GIVEN D10 AT 250CC EN ROUTE VIA IV. PT GIVEN 250ML D10. PATIENT RECENTLY EXPOSED TO COVID POSITIVE PATIENT, ON 2L N/C O2 SAT AT 92%. ON ARRIVAL PT GCS 5, BASELINE UNKNOWN PER EMT. PT AT 86% ON 2L NC O2 SKIN WARM, DRY RECTAL TEMP 101.6F. IV STARTED TO RIGHT AC, LACTIC SEPSIS PROTOCOL PER . MEDHX: DM, CHF, ESRD, HTN ALLERGIES: PCN
--- NOTE | 2021-07-23 09:17 | NUR ---
COLLECTED SANJIV GEE AND SANJIV GALLEGOS, COLLECETED BLOOD AND CULTURES. WALKED TO LAB.
--- NOTE | 2021-07-23 09:37 | NUR ---
SELF DEFENSE INSTRUCTOR AT PT BEDSIDE.
[2021-07-23 09:46] LABS: BASOPHILS % (AUTO) 0.6 % (0.0-2.0); EOSINOPHILS % (AUTO) 0.5 % (0.0-4.0); HEMATOCRIT 34.4 % (36-48); HEMOGLOBIN 10.5 g/dL (12.0-16.0); LYMPHOCYTES # (AUTO) 0.9 K/uL (2.5-16.5); LYMPHOCYTES % (AUTO) 16.7 % (20.5-51.1); MEAN CORPUSCULAR HEMOGLOBIN 30 pg (27-31); MEAN CORPUSCULAR HGB CONC 31 g/dL (33-37); MEAN CORPUSCULAR VOLUME 97.9 fL (80-94); MONOCYTES # (AUTO) 0.9 K/uL (0.8-1.0); NEUTROPHILS # (AUTO) 3.7 K/uL (1.8-7.7); NEUTROPHILS % (AUTO) 66.2 % (42.2-75.2); PLATELET COUNT (AUTO) 106 K/uL (140-450); RED BLOOD CELL COUNT(AUTO) 3.51 MIL/uL (4.20-5.40); RED CELL DISTRIBUTION WIDTH 18.8 % (11.6-13.7); WHITE BLOOD COUNT (AUTO) 5.5 K/uL (4.8-10.8)
--- NOTE | 2021-07-23 10:11 | NUR ---
PT TAKEN TO CT VIA RDISHA.
[2021-07-23] MEDS ORDERED: NACL 0.9% 1,000 ML IV ONE (10:15)
--- NOTE | 2021-07-23 10:23 | NUR ---
PT TAKEN TO ER BED 1 VIA FILIPE.
--- NOTE | 2021-07-23 10:41 | NUR ---
PT SPO2 78% ON HUMIDIFIER AT 10L, RT CALLED. PLACED PT ON NON-REBREATHER HUMIDIFIER AT 15L SPO2 94%. WILL CONTINUE TO MONITOR.
[2021-07-23 11:01] LABS: APPEARANCE,URINE TURBID (CLEAR); COLOR,URINE YELLOW (YELLOW)
[2021-07-23 11:02] LABS: BILIRUBIN,URINE NEGATIVE (NEGATIVE); BLOOD, URINE 2+ (NEGATIVE); PH,URINE 7.5 (5.0-9.0); UGLUCOSE 2+ (NEGATIVE)
[2021-07-23 11:03] LABS: LEUKOCYTE ESTERASE ,URINE 1+ (NEGATIVE); NITRITE, URINE NEGATIVE (NEGATIVE)
[2021-07-23 11:07] LABS: RBC,URINE NONE SEEN /HPF (0-5); WBC,URINE TOO MANY TO COUNT /HPF (0-5)
[2021-07-23 11:25] LABS: ALBUMIN 3.3 g/dL (3.4-5.0); ASPARTATE AMINOTRANSFERASE 32 U/L (15-37); CARBON DIOXIDE 29.5 mmol/L (21-32); CHLORIDE 97 mmol/L (98-107); CREATININE 3.5 mg/dL (0.6-1.3); GLUCOSE 103 mg/dL (74-106); POTASSIUM 4.5 mmol/L (3.5-5.1); SODIUM SERUM 135 mmol/L (136-145); TOTAL BILIRUBIN 0.6 mg/dL (0.0-1.0); UREA NITROGEN, BLOOD 24 mg/dL (7-18)
--- NOTE | 2021-07-23 11:32 | NUR ---
SPOKE WITH ELIE MALIK FROM [facility] [place] FOR [place]ENDING ADMISSION.
[2021-07-23] MEDS ORDERED: DOCUSATE SODIUM 100 MG GELCAP PO PRN (11:35)
[2021-07-23] MEDS ORDERED: ONDANSETRON 4 MG/2 ML VIAL IM/IVP PRN (11:35)
[2021-07-23] MEDS ORDERED: POTASSIUM CHLORIDE 10 MEQ TABER PO PRN (11:35)
[2021-07-23] MEDS ORDERED: ACETAMINOPHEN 325 MG TAB PO PRN (11:35)
[2021-07-23] MEDS ORDERED: ALBUTEROL HFA MDI 90 MCG/ACTUATION 8 GM INH PRN (11:40)
--- NOTE | 2021-07-23 11:56 | NUR ---
GAVE REPORT TO ELIE LOMAS, FOR PENDING TRANSFER ETA 15MINUTES.
[2021-07-23 12:15] VITALS: BP 130/77
--- NOTE | 2021-07-23 12:15 | NUR ---
PATIENT WHEELED TO THE FLOOR VIA GURNEY. MOVED TO THE BED. PATIENT AOX2, ON 15L NRB O2 SAT AT 100%. RESPIRATIONS EVEN AND UNLABORED. NO S/S OF SOB OR DISTRESS NOTED. PATIENT CAME FROM [facility] [place]. MRSA SCREENING DONE. PT DX OF UTI AND ALOC. POSITIVE FOR COVID VIA RAPID ANTIGEN TEST. PT PLACED ON DROPLET ISOLATION. VERBALIZED PLAN OF CARE TO PATIENT. PATIENT CONFUSED. MALDONADO CATHETER IN PLACE, DRAINING TO GRAVITY WITH WHITE CLOUDY URINE. IVS ON RIGHT ARMS, ONE 22G ON RT WRIST SL, ON ON RT AC 20G CURRENTLY SL. SAFETY PRECAUTIONS IN PLACE, CALL LIGHT WITHIN REACH, WILL CONTINUE TO MONITOR PATIENT.
--- NOTE | 2021-07-23 12:26 | NUR ---
Patient will be admitted to care of DR. CAMPBELL. Admited to TELE. Will go to room 113. Belongings list completed. Report to ELIE LOMAS.
[2021-07-23] MEDS ORDERED: traMADol 50 MG TAB PO PRN (12:40)
[2021-07-23 12:42] LABS: PROTHROMBIN TIME 11.8 secs (10.8-13.4)
[2021-07-23 12:52] LABS: CHOL/HDL RATIO 2.2 (1-4.5); FREE T4 (FREE THYROXINE) 0.77 ng/dL (0.76-1.46); MAGNESIUM 2.2 mg/dL (1.8-2.4); PHOSPHORUS 4.5 mg/dL (2.5-4.9); THYROID STIMULATING HORMONE 3.34 uIU/mL (0.34-3.74)
--- NOTE | 2021-07-23 13:05 | NUR ---
DAUGHTER ALDO CARRASQUILLO CALLED. UPDATED HER OF PATIENT'S STATUS. SHE VERBALIZED UNDERSTANDING. PER ALDO, PT GETS HEMODIALYSIS ON MWF. HEMODIALYSIS CONSENT OBTAINED WITH TESSIE SOLITARIO RN CHANDLER VIA TELEPHONE. CONSENT FOR IN CASE PATIENT NEEDS DIALYSIS OUTSIDE OF HER REGULAR SCHEDULE.
[2021-07-23] MEDS ORDERED: remdesivir COMMUNICATION ORDER 1 EA MISC MC PRN (13:15)
--- NOTE | 2021-07-23 13:19 | NUR ---
Called Dr. Raza to inform him of consult. Patient is dialysis patient, schedule is MWF per daughter Katherine Negron. Waiting for Dr. Raza to call back with orders.
[2021-07-23] MEDS: DEXT 5% /NACL 0.9% 1,000 ML IV SCH (13:35)
--- NOTE | 2021-07-23 13:54 | NUR ---
DR MCCRACKEN CALLED BACK. HE'S AWARE OF PATIENTS REGULAR HEMODIALYSIS DAYS OF MWF. HE SAID THAT HE WILL ASSESS. RN VERBALIZED UNDERSTANDING.
[2021-07-23] MEDS ORDERED: REMDESIVIR. 200 MG in NACL 0.9% 100 ML IV SCH (15:00)
[2021-07-23 15:45] VITALS: BP 130/77
[2021-07-23] MEDS: guaiFENesin DM 200/20 MG-10 ML 10 ML UDC PO PRN (16:28)
--- NOTE | 2021-07-23 17:30 | NUR ---
SPOKE WITH DR. GONZALEZ TO CLARIFY ELIQUIS ORDER. PER DR. GONZALEZ, OK TO DC HEPARIN BID, PT WILL BE ON ELIQUIS 2.5 MG BID.
--- NOTE | 2021-07-23 18:20 | NUR ---
Sneha from [facility] [place] [place] called to get status on patient. Updated her on patient's status. She verbalized understanding.
--- NOTE | 2021-07-23 19:30 | NUR ---
REPORT GIVEN TO PLANNING ANALYST RN. CALLED DR. CAMPBELL TO GET ACCUCHECK ORDER.
[2021-07-23] MEDS ORDERED: DEXTROSE 50% 50 ML SYR IVP PRN (19:50)
[2021-07-23 20:00] VITALS: BP 135/74
[2021-07-23] MEDS: BLOOD GLUCOSE MONITORING 1 DEV DEV FS SCH (21:00)
--- NOTE | 2021-07-23 21:29 | NUR ---
PT SLEEPING COMFORTABLY W/ 5L SM (WILL CHANGE MASK IT IS TOO SMALL) SPO2 97% HR 89 W/ NO DISTRESS NOTED WILL CONTINUE TO MONITOR
[2021-07-23] MEDS: GABAPENTIN 300 MG CAP PO SCH (22:42)
[2021-07-23] MEDS: FUROSEMIDE 20 MG/2 ML VIAL IVP SCH (22:43)
--- NOTE | 2021-07-23 22:53 | NUR ---
SIMPLE MASK EXCHANGED FOR LARGER ONE
[2021-07-23] MEDS: APIXABAN 2.5 MG TAB PO SCH (23:14)
[2021-07-24] VITALS (7 sets, daily range): BP systolic 89–139; BP diastolic 38–78
--- NOTE | 2021-07-24 00:42 | NUR ---
PT PLACED ON 3LNC AND TOLERATING WELL CURRENT SPO2 96%
[2021-07-24] MEDS: ZOLPIDEM 5 MG TAB PO PRN (02:24)
[2021-07-24] MEDS: HYDROcodone/APAP 7.5/325 MG 1 TAB PO PRN ×2 (02:25→21:54)
[2021-07-24] MEDS: BLOOD GLUCOSE MONITORING 1 DEV DEV FS SCH ×4 (06:33→22:16)
[2021-07-24 07:06] LABS: T4 (THYROXINE) 5.5 ug/dL (4.5-12.0)
--- NOTE | 2021-07-24 07:30 | NUR ---
RECEIVED REPORT FROM TURPENTINE DISTILLER. PATIENT AOX2, ON 3L NC SATURATING WELL. RESPIRATIONS EVEN AND UNLABORED. NO S/S OF SOB OR DISTRESS NOTED. ON DROPLET ISOLATION FOF POSITIVE COVID. MALDONADO CATHETER IN PLACE, DRAINING TO GRAVITY WITH WHITE CLOUDY URINE. IVS ON RIGHT ARMS, ONE 22G ON RT WRIST SL. DIALYSIS CATH ON RIGHT UPPER CHEST. SAFETY PRECAUTIONS IN PLACE, CALL LIGHT WITHIN REACH, WILL CONTINUE TO MONITOR PATIENT.
[2021-07-24 07:50] LABS: BASOPHILS % (AUTO) 0.2 % (0.0-2.0); HEMATOCRIT 35.7 % (36-48); LYMPHOCYTES # (AUTO) 0.6 K/uL (2.5-16.5); MEAN CORPUSCULAR HEMOGLOBIN 30 pg (27-31); MEAN CORPUSCULAR HGB CONC 31 g/dL (33-37); MEAN CORPUSCULAR VOLUME 98.6 fL (80-94); MONOCYTES # (AUTO) 0.2 K/uL (0.8-1.0); MONOCYTES % (AUTO) 6.8 % (1.7-9.3); NEUTROPHILS # (AUTO) 2.7 K/uL (1.8-7.7); PLATELET COUNT (AUTO) 107 K/uL (140-450); RED BLOOD CELL COUNT(AUTO) 3.62 MIL/uL (4.20-5.40); RED CELL DISTRIBUTION WIDTH 18.6 % (11.6-13.7); WHITE BLOOD COUNT (AUTO) 3.5 K/uL (4.8-10.8)
[2021-07-24 08:15] LABS: ASPARTATE AMINOTRANSFERASE 23 U/L (15-37); CHLORIDE 98 mmol/L (98-107); CREATININE 3.2 mg/dL (0.6-1.3); GLUCOSE 142 mg/dL (74-106); SODIUM SERUM 136 mmol/L (136-145); TOTAL BILIRUBIN 0.5 mg/dL (0.0-1.0); UREA NITROGEN, BLOOD 22 mg/dL (7-18)
[2021-07-24] MEDS: ASCORBIC ACID 500 MG TAB PO SCH (09:00)
[2021-07-24] MEDS: GABAPENTIN 300 MG CAP PO SCH ×2 (09:00→20:08)
[2021-07-24] MEDS ORDERED: AZITHROMYCIN 250 MG TAB PO SCH (09:00)
[2021-07-24] MEDS: DULoxetine 30 MG CAPDR PO SCH (09:00)
[2021-07-24] MEDS: PANTOPRAZOLE 40 MG TABEC PO SCH (09:00)
[2021-07-24] MEDS: ATORVASTATIN 20 MG TAB PO SCH (09:00)
[2021-07-24] MEDS: ZINC SULF 220 MG CAP PO SCH (09:00)
[2021-07-24] MEDS: FUROSEMIDE 20 MG/2 ML VIAL IVP SCH ×2 (09:00→20:06)
[2021-07-24] MEDS ORDERED: COMMUNICATION ORDER MC SCH (09:00)
--- NOTE | 2021-07-24 09:30 | NUR ---
MEDS GIVEN. TOLERATED PO MEDS WELL
[2021-07-24] MEDS: APIXABAN 2.5 MG TAB PO SCH ×2 (09:44→20:07)
[2021-07-24] MEDS: DEXT 5% /NACL 0.9% 1,000 ML IV SCH (11:35)
--- NOTE | 2021-07-24 12:00 | NUR ---
PT IN BED. NO C/O PAIN, NO SOB, BS 134
--- NOTE | 2021-07-24 15:30 | NUR ---
PATIENT SITTING DOWN IN BED WATCHING TV. NO DISTRESS NOTED. DENIES ANY PAIN. CONDITION UNCHANGED. WILL CONTINUE TO MONITOR.
--- NOTE | 2021-07-24 17:30 | NUR ---
PATIENT SITTING IN BED WATCHING TV. ON O2 3L/MIN VIA NC. NO DISTRESS NOTED. CONDITION UNCHANGED. WILL CONTINUE TO MONITOR.
--- NOTE | 2021-07-24 19:39 | NUR ---
GAVE REPORT TO ELECTRICAL CONTINUITY TESTER NURSE FOR CONTINUITY OF CARE. PATIENT IN STABLE CONDITION.
[2021-07-24] MEDS: guaiFENesin DM 200/20 MG-10 ML 10 ML UDC PO PRN (20:08)
--- NOTE | 2021-07-24 23:35 | NUR ---
LEFT MESSAGE FOR CRISTINA, LAST HD 07/23. NOTE BY PROVIDER SAID HD TODAY. TADEO DOWNS RN. Addendum: 07/24/21 at 2355 by Agency ELIE DELGADILLO PROVIDER DICTATION IS 07/23/21 (TODAY)
[2021-07-25 03:48] VITALS: BP 118/75
[2021-07-25] MEDS: BLOOD GLUCOSE MONITORING 1 DEV DEV FS SCH ×4 (06:12→21:49)
--- NOTE | 2021-07-25 07:13 | NUR ---
PATIENT REFUSES IV ATTEMPT. EDUCATION ABOUT IV FLUID TO PREVENT LOW BLOOD GLUCOSE. PATIENT SAYS SHE HAS HAD NO LOW BLOOD SUGARS. TADEO DOWNS RN
[2021-07-25 07:28] LABS: BASOPHILS % (AUTO) 0.2 % (0.0-2.0); EOSINOPHILS % (AUTO) 0.4 % (0.0-4.0); HEMATOCRIT 32.4 % (36-48); LYMPHOCYTES # (AUTO) 1.1 K/uL (2.5-16.5); MEAN CORPUSCULAR HEMOGLOBIN 30 pg (27-31); MEAN CORPUSCULAR HGB CONC 31 g/dL (33-37); MEAN CORPUSCULAR VOLUME 97.9 fL (80-94); MONOCYTES # (AUTO) 0.5 K/uL (0.8-1.0); MONOCYTES % (AUTO) 14.5 % (1.7-9.3); NEUTROPHILS # (AUTO) 2.1 K/uL (1.8-7.7); NEUTROPHILS % (AUTO) 54.9 % (42.2-75.2); PLATELET COUNT (AUTO) 108 K/uL (140-450); RED BLOOD CELL COUNT(AUTO) 3.31 MIL/uL (4.20-5.40); RED CELL DISTRIBUTION WIDTH 18.6 % (11.6-13.7); WHITE BLOOD COUNT (AUTO) 3.8 K/uL (4.8-10.8)
--- NOTE | 2021-07-25 07:44 | NUR ---
HANDOFF WITH ELIE GARZA. TADEO DOWNS RN
[2021-07-25 07:51] LABS: ANION GAP 11.9 (8-16); ASPARTATE AMINOTRANSFERASE 27 U/L (15-37); CARBON DIOXIDE 28.2 mmol/L (21-32); CHLORIDE 98 mmol/L (98-107); CREATININE 3.8 mg/dL (0.6-1.3); GLUCOSE 95 mg/dL (74-106); POTASSIUM 4.1 mmol/L (3.5-5.1); SODIUM SERUM 134 mmol/L (136-145); TOTAL BILIRUBIN 0.5 mg/dL (0.0-1.0); UREA NITROGEN, BLOOD 32 mg/dL (7-18)
[2021-07-25 08:00] VITALS: BP 115/73
--- NOTE | 2021-07-25 08:49 | NUR ---
PATIENT HAS BEEN SCREENED AND CATEGORIZED MODERATE NUTRITION RISK. PATIENT WILL BE SEEN WITHIN 3-5 DAYS OF ADMISSION. 08/25/21 07/27/[address] Addendum: 07/25/21 at [address] CORRECTION 07/25/21- 07/27/21
[2021-07-25] MEDS: DULoxetine 30 MG CAPDR PO SCH (10:56)
[2021-07-25] MEDS: GABAPENTIN 300 MG CAP PO SCH ×2 (10:56→21:28)
[2021-07-25] MEDS: PANTOPRAZOLE 40 MG TABEC PO SCH (10:57)
[2021-07-25] MEDS: ZINC SULF 220 MG CAP PO SCH (10:57)
[2021-07-25] MEDS: ATORVASTATIN 20 MG TAB PO SCH (10:57)
[2021-07-25] MEDS: ASCORBIC ACID 500 MG TAB PO SCH (10:57)
[2021-07-25] MEDS: HYDROcodone/APAP 7.5/325 MG 1 TAB PO PRN (10:58)
[2021-07-25] MEDS: APIXABAN 2.5 MG TAB PO SCH ×2 (10:59→21:00)
[2021-07-25] MEDS: guaiFENesin DM 200/20 MG-10 ML 10 ML UDC PO PRN (11:00)
[2021-07-25] MEDS: FUROSEMIDE 20 MG/2 ML VIAL IVP SCH ×2 (11:00→21:00)
[2021-07-25] MEDS: LEVOFLOXACIN 500 MG/D5W PREMIX 150 ML IV SCH (11:01)
[2021-07-25 12:00] VITALS: BP 107/57
[2021-07-25] MEDS: DEXT 5% /NACL 0.9% 1,000 ML IV SCH (13:23)
--- NOTE | 2021-07-25 15:33 | NUR ---
DC PLANNING: CM SPOKE WITH PATIENTS DAUGHTER ALDO BY PHONE, CONFIRMED THAT SHE IS IN AGREEMENT WITH THE PATIENT RETURNING TO [facility] WHEN CLINICALLY STABLE FOR DISCHARGE. PER KENNY AT [facility] THE PATIENT IS PRIMARILY WC BOUND, REQUIRES ASSISTANCE WITH BATHING AND DRESSING BUT IS ABLE TO FEED HERSELF. THE PATIENT GOES TO [facility] ON AT 2:30 PM. SHE USES O2 CONTINUOUSLY, 1-2 L PER NC EVEN WHEN TRANSPORTING TO DIALYSIS. SHE ALSO RECEIVES P.T. SERVICES AT [facility]. CM WILL FOLLOW FOR NEEDS. Addendum: 07/26/21 at 1357 by Jessica Dawn RN DC PLANNING RECEIVED A CALL FROM [facility] SPOKE WITH USHA AT [phone] STATED SINCE SHE IS COVID POSITIVE FOR COVID HER DIALYSIS CENTER WILL BE AT [facility] ON AT 8:30 AM . FAXED ALL PAPERWORK TO [phone] AND NOTIFIED MARC AT [facility]. CM TO FOLLOW Addendum: 07/28/21 at 1237 by Maegan Covington CM DC PLANNING: LIDIA SPOKE WITH DAVE AT [facility] REGARDING PATIENTS DIALYSIS SCHEDULE. PATIENT IS SET UP FOR [facility] T, , SAT AT 10:30. TRANSPORT HAS BEEN VIA WC BUT PER [facility]'S CONTRACTED TRANSPORT SET UP MECHANIC STAMPING MACHINES CALL THE CAR THE PATIENT NOW HAS TO BE ALS BECAUSE SHE IS COVID POSITIVE. LIDIA ATTEMPTED TO SET UP TRANSPORT TO DC TO [facility] TODAY, TRANSPORT WAS DENIED BY [facility]. TRANSPORT IS NOT YET SET UP FOR PATIENT DIALYSIS VISITS, LIDIA SPOKE WITH KENNY AT [facility] AND SHE STATED THAT [facility] IS RESPONSIBLE FOR SETTING UP TRANSPORT. LIDIA CALLED THE [facility] AGAIN, SPOKE WITH DAVE WHO CONFIRMED THAT SHE SPOKE WITH THE SW FOR [facility] AND THAT THE STATED THAT [facility] WILL SET UP TRANSPORT FOR HD. LIDIA ALSO SPOKE WITH MARC FROM [facility] AND ASKED FOR CLARIFICATION ON RESPONSIBILITY FOR TRANSPORT ARRANGEMENTS, MARC STATES SHE WILL CALL LIDIA BACK. LIDIA WILL ATTEMPT TO SPEAK WITH [facility] REGARDING AUTH FOR TRANSPORT TODAY AND WILL FOLLOW FOR NEEDS. Addendum: 07/28/21 at 1451 by Maegan Covington CM DC PLANNING: ON HOLD WITH [place] [facility] FOR 45 MINUTES, ANOTHER 30 MINUTES SPEAKING WITH A HEALTH SYSTEMS ANALYST WHO ATTEMPTED TO REACH [facility] TRANSPORT. WILLAM FROM [facility] WAS FINALLY ABLE TO REACH SOMEONE IN TRANSPORT TO CALL LIDIA TO MAKE ARRANGEMENTS. TONG LIVINGSTON CALL THE CAR TO ARRANGE FOR TRANSPORT TO [facility], REFERENCE NUMBER [id number]. ALSO ARRANGED FOR DIALYSIS TRANSPORT WHICH WILL CONTINUE AT [facility] UNTIL THE . [facility] WILL NEED TO CALL AND RESCHEDULE THE PATIENTS TRANSPORT AFTER THE AND BEFORE THE . [facility] IS REFUSING TO TRANSPORT PATIENT TODAY AND WILL NOT ALLOW ARRANGEMENTS FOR HD TRANSPORT. LIDIA SPOKE WITH ZIA AT [facility] WHO STATES THAT DUE TO HIGH VOLUME THEY HAVE TO PRIORITIZE CALLS AND WILL NOT ACCEPT THIS CALL FOR TODAY OR HD TRANSPORT. [facility] TRIED TO MAKE ARRANGEMENTS WITH [facility]SPORT, UNABLE TO REACH THEM. LIDIA CALLED [facility] AND SPOKE WITH ERIC, ARRANGED FOR THEM TO MANAGER EMPLOYEE RELATIONS THE PATIENT BY 3:30, PATIENT WILL BE WHEELED OUT OF THE HOSPITAL IN A WC TO THE [facility]AN. LIDIA SPOKE WITH MARC AT [facility] AND ENDORSED THAT THEY WILL HAVE TO MAKE TRANSPORT ARRANGEMENTS THROUGH THE AND CAN USE CALL THE CAR FOR NON-MEDICAL TRANSPORT TO HD. LIDIA ENDORSED THIS TO THE PATIENTS RN JANEY, LIDIA WILL CALL JANEY ONCE [facility] NOTIFIES THAT THEY ARE OUTSIDE. PATIENTS DAUGHTER ALDO ALSO NOTIFIED OF MANAGER EMPLOYEE RELATIONS TIME. CM WILL FOLLOW FOR NEEDS.
[2021-07-25 16:00] VITALS: BP 108/62
[2021-07-25 20:25] VITALS: BP 101/46
[2021-07-25] MEDS: METOPROLOL 25 MG TAB PO SCH (21:00)
[2021-07-25] MEDS: guaiFENesin 600 MG TABER PO SCH (21:29)
[2021-07-25] MEDS: INSULIN LISPRO SLIDING SCALE 100 UNITS/ML VIAL SUBQ PRN (21:52)
[2021-07-25 23:50] VITALS: BP 107/53
--- NOTE | 2021-07-26 06:18 | NUR ---
FROM 4AM TO 730AM SEE PAPERCHART DOCUMENTATION. TADEO DOWNS RN
[2021-07-26 07:03] LABS: BASOPHILS % (AUTO) 0.3 % (0.0-2.0); EOSINOPHILS % (AUTO) 0.1 % (0.0-4.0); HEMATOCRIT 33.7 % (36-48); HEMOGLOBIN 10.6 g/dL (12.0-16.0); LYMPHOCYTES # (AUTO) 0.7 K/uL (2.5-16.5); LYMPHOCYTES % (AUTO) 26.4 % (20.5-51.1); MEAN CORPUSCULAR HEMOGLOBIN 31 pg (27-31); MEAN CORPUSCULAR HGB CONC 32 g/dL (33-37); MEAN CORPUSCULAR VOLUME 96.7 fL (80-94); MONOCYTES # (AUTO) 0.3 K/uL (0.8-1.0); MONOCYTES % (AUTO) 11.3 % (1.7-9.3); NEUTROPHILS # (AUTO) 1.7 K/uL (1.8-7.7); NEUTROPHILS % (AUTO) 61.9 % (42.2-75.2); PLATELET COUNT (AUTO) 89 K/uL (140-450); RED BLOOD CELL COUNT(AUTO) 3.49 MIL/uL (4.20-5.40); WHITE BLOOD COUNT (AUTO) 2.8 K/uL (4.8-10.8)
[2021-07-26 07:27] LABS: ALBUMIN 3.1 g/dL (3.4-5.0); ANION GAP 12.2 (8-16); ASPARTATE AMINOTRANSFERASE 28 U/L (15-37); CARBON DIOXIDE 30.9 mmol/L (21-32); CHLORIDE 97 mmol/L (98-107); CREATININE 3.3 mg/dL (0.6-1.3); GLUCOSE 126 mg/dL (74-106); POTASSIUM 4.1 mmol/L (3.5-5.1); SODIUM SERUM 136 mmol/L (136-145); TOTAL BILIRUBIN 0.5 mg/dL (0.0-1.0)
[2021-07-26] MEDS: BLOOD GLUCOSE MONITORING 1 DEV DEV FS SCH ×4 (07:30→21:00)
--- NOTE | 2021-07-26 07:35 | NUR ---
RECEIVED BEDSIDE REPORT FROM FITTER AND TURNER NURSE FOR CONTINUITY OF CARE. PT IS AWAKE AND ANSWERING QUESTIONS APPROPRIATELY. PERIODS OF CONFUSION. ON 2L O2 NC WITH BREATHING UNLABORED. ON TELE MONITOR. MALDONADO CATH IN PLACE. REDNESS TO THE SACRAL REGION REPORTED BY FITTER AND TURNER NURSE. SKIN IS WARM AND DRY. PT IS DROPLET PRECAUTIONS FOR POSITIVE COVID TEST. PLAN OF CARE DISCUSSED. PT IS STABLE AT THIS TIME.
--- NOTE | 2021-07-26 07:39 | NUR ---
HANDOFF WITH ELIE JAMES. TADEO DOWNS RN
[2021-07-26 08:00] VITALS: BP 126/65
[2021-07-26] MEDS: ATORVASTATIN 20 MG TAB PO SCH (08:16)
[2021-07-26] MEDS: ASCORBIC ACID 500 MG TAB PO SCH (08:16)
[2021-07-26] MEDS: DULoxetine 30 MG CAPDR PO SCH (08:16)
[2021-07-26] MEDS: GABAPENTIN 300 MG CAP PO SCH ×2 (08:16→21:00)
[2021-07-26] MEDS: PANTOPRAZOLE 40 MG TABEC PO SCH (08:16)
[2021-07-26] MEDS: FUROSEMIDE 20 MG/2 ML VIAL IVP SCH ×2 (08:17→21:00)
[2021-07-26] MEDS: ZINC SULF 220 MG CAP PO SCH (08:17)
[2021-07-26] MEDS: METOPROLOL 25 MG TAB PO SCH ×2 (08:17→21:00)
[2021-07-26] MEDS: guaiFENesin 600 MG TABER PO SCH ×2 (08:17→21:00)
[2021-07-26 08:43] LABS: UREA NITROGEN, BLOOD 27 mg/dL (7-18)
[2021-07-26] MEDS: APIXABAN 2.5 MG TAB PO SCH ×2 (08:47→21:00)
--- NOTE | 2021-07-26 08:47 | NUR ---
ELIQUIS WAS HELD/ NOT GIVEN FOR PLATELET LEVEL OF 89. DOCTOR WAS INFORMED VIA MESSAGE.
--- NOTE | 2021-07-26 09:30 | NUR ---
DIAPER WAS CHECKED AND PT IS DRY/CLEAN. PT DENIES PAIN AT THIS TIME. RIGHT UPPER CHEST TUNNELED CATH IN PLACE. BREATHING IS UNLABORED ON 2L O2 NC. OR SAT IS 100%. PT COUGHING PERIODICALLY. COUGH IS DRY, NONPRODUCTIVE. NO ELEVATED TEMP AT THIS TIME. WILL CONTINUE TO MONITOR.
--- NOTE | 2021-07-26 11:30 | NUR ---
PT IS AWAKE, WATCHING TV IN BED. BREATHING IS UNLABORED ON 2L O2 NC. O2 SAT IS 99%. PT DENIES PAIN. IV IS PATENT AND INFUSING ORDERED. WILL CONTINUE TO MONITOR.
[2021-07-26] MEDS: DEXT 5% /NACL 0.9% 1,000 ML IV SCH (11:35)
[2021-07-26 12:00] VITALS: BP 121/60
--- NOTE | 2021-07-26 12:44 | NUR ---
BS READING WAS 113. NO INSULIN COVERAGE NEEDED PER SLIDING SCALE. LUNCH TRAY WAS DELIVERED AND PT IS EATING IN BED.
--- NOTE | 2021-07-26 14:00 | NUR ---
07/26/21 RD INITIAL ASSESSMENT COMPLETED PLEASE REFER TO NUTRITION ASSESSMENT UNDER CARE ACTIVITY FOR ESTIMATED NUTRITIONAL NEEDS. 1. PENDING A SWALLOW EVALUATION 2. [facility] 3. RECOMMEND NEPRO QD -THIS WILL PROVIDE AN ADDITIONAL 425 KCAL AND 19 GM OF PROTEIN 4. IF PO INTAKE IMPROVES ADD RENAL RESTRICTIONS 5. RD TO FOLLOW-UP 3-5 DAYS, MODERATE RISK EVER FRANKLIN, RD
--- NOTE | 2021-07-26 14:30 | NUR ---
PT HAD A SMALL BM. PT WAS CHANGED AND BED BATH WAS GIVEN. BM WAS BROWN, SOFT, AND SMALL IN AMOUNT. PT IS COMFORTABLE IN BED. NO COMPLAINTS AT THIS TIME.
[2021-07-26] MEDS: HYDROcodone/APAP 7.5/325 MG 1 TAB PO PRN ×2 (14:52→22:47)
--- NOTE | 2021-07-26 14:53 | NUR ---
PT STATES SHE HAS PAIN AT A SCALE OF 6/10 ON HER LOWER EXTREMITIES BILAT. PT WAS GIVEN NORCO FOR PAIN. WILL MONITOR.
[2021-07-26 16:00] VITALS: BP 137/74
--- NOTE | 2021-07-26 17:00 | NUR ---
ROUNDED ON PT. SHE IS AWAKE IN BED. NO RESPIRATORY DISTRESS NOTED. PT DENIES PAIN. SHE IS STABLE AT THIS TIME.
[2021-07-26] MEDS: ISOSORBIDE DINITRATE 10 MG TAB PO SCH (18:11)
[2021-07-26] MEDS: guaiFENesin DM 200/20 MG-10 ML 10 ML UDC PO PRN (18:15)
[2021-07-26] MEDS: INSULIN LISPRO SLIDING SCALE 100 UNITS/ML VIAL SUBQ PRN (18:24)
--- NOTE | 2021-07-26 18:25 | NUR ---
BS READING IS 152. 2 UNITS, HUMALOG INSULIN WAS GIVEN PER SLIDING SCALE. DINNER TRAY WILL BE DELIVERED TO THE ROOM SHORTLY. ROBITUSSIN WAS ALSO GIVEN FOR COUGH REQUESTED BY PT. WILL MONITOR FOR COUGH.
--- NOTE | 2021-07-26 19:30 | NUR ---
ENDORSED PT TO CONCRETE BLOCK MASON NURSE FOR CONTINUITY OF CARE. PT IS STABLE AT THIS TIME. PLAN OF CARE DISCUSSED.
[2021-07-26 20:00] VITALS: BP 135/74
[2021-07-26] MEDS: ZOLPIDEM 5 MG TAB PO PRN (22:48)
[2021-07-27] VITALS: BP 135/80
[2021-07-27 04:00] VITALS: BP 128/69
--- NOTE | 2021-07-27 06:02 | NUR ---
PT SLEPT WELL AFTER GETTING NORCO AND TIMO , ROSE MARYS N , SR AM CARE WAS GIVEN LINEN WAS CHANGED SHE HAD BM LARGE
[2021-07-27] MEDS: BLOOD GLUCOSE MONITORING 1 DEV DEV FS SCH ×4 (06:34→21:00)
[2021-07-27 06:59] LABS: BASOPHILS % (AUTO) 0.4 % (0.0-2.0); EOSINOPHILS % (AUTO) 0.1 % (0.0-4.0); HEMATOCRIT 33.1 % (36-48); HEMOGLOBIN 10.3 g/dL (12.0-16.0); LYMPHOCYTES # (AUTO) 1.1 K/uL (2.5-16.5); MEAN CORPUSCULAR HEMOGLOBIN 30 pg (27-31); MEAN CORPUSCULAR HGB CONC 31 g/dL (33-37); MEAN CORPUSCULAR VOLUME 96.4 fL (80-94); MONOCYTES # (AUTO) 0.5 K/uL (0.8-1.0); MONOCYTES % (AUTO) 12.8 % (1.7-9.3); NEUTROPHILS # (AUTO) 2.2 K/uL (1.8-7.7); NEUTROPHILS % (AUTO) 58.7 % (42.2-75.2); PLATELET COUNT (AUTO) 99 K/uL (140-450); RED BLOOD CELL COUNT(AUTO) 3.43 MIL/uL (4.20-5.40); RED CELL DISTRIBUTION WIDTH 18.4 % (11.6-13.7); WHITE BLOOD COUNT (AUTO) 3.8 K/uL (4.8-10.8)
[2021-07-27 07:13] LABS: ALBUMIN 3.2 g/dL (3.4-5.0); ANION GAP 14.8 (8-16); ASPARTATE AMINOTRANSFERASE 25 U/L (15-37); CARBON DIOXIDE 26.5 mmol/L (21-32); CHLORIDE 97 mmol/L (98-107); CREATININE 3.9 mg/dL (0.6-1.3); GLUCOSE 114 mg/dL (74-106); POTASSIUM 4.3 mmol/L (3.5-5.1); SODIUM SERUM 134 mmol/L (136-145); TOTAL BILIRUBIN 0.6 mg/dL (0.0-1.0); UREA NITROGEN, BLOOD 37 mg/dL (7-18)
--- NOTE | 2021-07-27 07:35 | NUR ---
RECEIVED REPORT FROM NIGHT NURSE AT BEDSIDE FOR CONTINUITY OF CARE. REVIEWED AND WILL CONTINUE WITH POC. PT ASLEEP DURING REPORT, NURSE REPORTS PT IS AA&OX3. PT IS ON 2L NC BREATHING NORMAL AND UNLABORED. NURSE REPORTS PT IS A-FLUTTER/A-FIB ON TELE. PT HAS FC IN PLACE WITH MINIMAL OUTPUT DUE TO HEMODIALYSIS. PT DOES NOT CURRENTLY HAVE IV, WILL ATTEMPT TO PLACE ONE. LAST BG WAS 138. PT HAS RIGHT UPPER CHEST TUNNEL CATHETER FOR HEMODIALYSIS. PT CONDITION IS STABLE.
[2021-07-27 08:00] VITALS: BP 135/73
--- NOTE | 2021-07-27 08:16 | NUR ---
REPORTED CRITICAL LAB TO DR. ANDRADE; CREATININE 3.9 AND BUN 37. WILL WAIT FOR RESPONSE BACK.
[2021-07-27] MEDS: APIXABAN 2.5 MG TAB PO SCH ×2 (09:00→21:00)
--- NOTE | 2021-07-27 09:00 | NUR ---
ELIQUIS WAS NOT GIVEN DUE TO LOW PLATELET LEVEL. PLATELET LEVEL IS 99.
--- NOTE | 2021-07-27 09:40 | NUR ---
PT IS AWAKE AND ALERT. A&OX4. ON 2L O2 NC WITH O2 SAT AT 98%. DIAPER WAS SOILED WITH A BM. BM WAS MODERATE IN AMOUNT AND SOFT. LINENS WERE CHANGED. NEW DIAPER WAS PLACED ON PT. PT TOLERATED MOVEMENT WELL.
[2021-07-27] MEDS: ZINC SULF 220 MG CAP PO SCH (10:44)
[2021-07-27] MEDS: GABAPENTIN 300 MG CAP PO SCH ×2 (10:44→21:00)
[2021-07-27] MEDS: METOPROLOL 25 MG TAB PO SCH (10:44)
[2021-07-27] MEDS: PANTOPRAZOLE 40 MG TABEC PO SCH (10:45)
[2021-07-27] MEDS: ASCORBIC ACID 500 MG TAB PO SCH (10:46)
[2021-07-27] MEDS: ATORVASTATIN 20 MG TAB PO SCH (10:47)
[2021-07-27] MEDS: DULoxetine 30 MG CAPDR PO SCH (10:48)
[2021-07-27] MEDS: guaiFENesin 600 MG TABER PO SCH ×2 (10:48→21:00)
[2021-07-27] MEDS: FUROSEMIDE 20 MG/2 ML VIAL IVP SCH ×2 (10:49→21:00)
[2021-07-27] MEDS: LEVOFLOXACIN 500 MG/D5W PREMIX 150 ML IV SCH (10:49)
[2021-07-27] MEDS: ISOSORBIDE DINITRATE 10 MG TAB PO SCH ×3 (10:52→16:54)
[2021-07-27] MEDS: guaiFENesin DM 200/20 MG-10 ML 10 ML UDC PO PRN (10:53)
--- NOTE | 2021-07-27 10:53 | NUR ---
PT COMPLAINED OF COUGH. WILL ADMINISTER GUAFENESIN AND DEXTROMETHORPHAN ORAL SOLUTION PRN. WILL CONTINUE TO MONITOR.
--- NOTE | 2021-07-27 11:00 | NUR ---
NO IV AT SHIFT REPORT. NEW IV WAS PLACED ON THE RIGHT HAND 24 GAUGE. IV IS PATENT AND FLUSHING WELL. IV WAS PLACED ON THE SECOND ATTEMPT.
[2021-07-27] MEDS: DEXT 5% /NACL 0.9% 1,000 ML IV SCH (11:38)
--- NOTE | 2021-07-27 11:52 | NUR ---
PT WAS WEANED OFF OXYGEN VIA NC. PT WAS PREVIOUSLY ON 2L O2 NC WITH O2 SAT AT 99%. PT CURRENTLY WAS TAKEN OFF OXYGEN AND PLACED ON RA. MONITORED PT FOR 15 MINUTES AND O2 SAT WAS MAINTAINED ABOVE 95%.
[2021-07-27 12:00] VITALS: BP 139/70
--- NOTE | 2021-07-27 12:28 | NUR ---
PT'S BS READING WAS 105. PER SLIDING SCALE NO INSULIN COVERAGE IS NEEDED. PT IS STABLE AT THIS TIME. BREATHING IS UNLABORED ON RA. PT IS EATING LUNCH SITTING UP IN BED.
--- NOTE | 2021-07-27 12:50 | NUR ---
PT O2 SAT WAS DROPPING TO MID 80S PLACED PT BACK ON 2L NC O2. O2 SATURATION WENT BACK UP TO 95% WITH NC. NO SIGNS OF RESPIRATORY DISTRESS AFTER STAYING WITH PT FOR 5 MIN. WILL CONTINUE TO MONITOR.
--- NOTE | 2021-07-27 13:17 | NUR ---
DIALYSIS NURSE SPOKE TO DR. MCCRACKEN VIA MESSAGE. ORDER WAS PLACED FOR HD. HD WILL BE STARTED SHORTLY. Addendum: 07/27/21 at 1323 by Tonya Salas RN VERBAL ORDER FOR 2000 UNITS HEPARIN FOR HD PRIOR TO STARTING AND 5000 UNITS AFTER HD IS FINISHED.
--- NOTE | 2021-07-27 13:30 | NUR ---
HEMODIALYSIS NURSE AT BEDSIDE BEGINNING DIALYSIS. PT IS STABLE AT THIS TIME. WILL CONTINUE TO PERFORM FREQ CHECKS.
[2021-07-27] MEDS: HYDROcodone/APAP 7.5/325 MG 1 TAB PO PRN (14:19)
--- NOTE | 2021-07-27 14:19 | NUR ---
PT STATES SHE HAS PAIN AT A SCALE OF 6/10 IN HER LEGS AND BACK. PT WAS GIVEN NORCO ORDERED. WILL MONITOR FOR PAIN.
--- NOTE | 2021-07-27 14:31 | NUR ---
PLACED ORDER FOR HEPARIN 10,000 UNITS FOR THE END OF HD REQUESTED BY HD NURSE. PULLED MEDICATIONS AND GAVE TO HD NURSE.
--- NOTE | 2021-07-27 15:19 | NUR ---
PERFORMED PAIN REASSESSMENT. PT STATES SHE IS NO [id number] IN PAIN AND MEDICATION WAS EFFECTIVE. WILL CONTINUE TO MONITOR FOR PAIN .
--- NOTE | 2021-07-27 15:32 | NUR ---
PT HAS HD AT BEDSIDE. CONDITION IS STABLE. PT DENIES PAIN AND DISCOMFORT AT THIS TIME. WILL CONTINUE TO MONITOR CONDITION.
[2021-07-27 16:00] VITALS: BP 142/75
--- NOTE | 2021-07-27 16:52 | NUR ---
DIALYSIS IS FINISHED. 2.7 LITERS OF FLUID OUT. PT IS STABLE AT THIS TIME. BP IS 147/71. WILL CONTINUE TO MONITOR PT.
--- NOTE | 2021-07-27 16:54 | NUR ---
PT WAS SEEN FOR DYSPHAGIA. PT WS ABLE TO SAFELY SWALLOW REGULAR DIET WITH THIN LIQUID WITHOUT S/S OF ASPIRATION. RECOMMENDATION REGULAR DIET WITH THIN LIQUID
--- NOTE | 2021-07-27 17:01 | NUR ---
PT'S BS READING IS 163. 2 UNITS HUMALOG INSULIN WAS GIVEN PER SLIDING SCALE.
[2021-07-27] MEDS: INSULIN LISPRO SLIDING SCALE 100 UNITS/ML VIAL SUBQ PRN ×2 (17:03→22:58)
--- NOTE | 2021-07-27 17:42 | NUR ---
PT CURRENTLY HAS COMMISSARY STEWARD AT BEDSIDE PERFORMING DIAPER CHANGE. PT DENIED ANY PAIN OR DISTRESS. SHE IS STILL ON O2 AND SATURATING WELL, CURRENTLY AT 95%. WILL CONTINUE TO MONITOR.
--- NOTE | 2021-07-27 19:23 | NUR ---
GAVE CHANGE OF SHIFT REPORT TO NIGHT NURSE. DISCUSSED POC. PT CONDITION IS STABLE.
--- NOTE | 2021-07-27 19:24 | NUR ---
RECEIVED PATIENT FROM AM NURSE FOR CONTINUITY OF CARE. PATIENT IS A/A/O X3 WITH EPISODE OF CONFUSION. RESPIRATORY EVEN AND UNLABORED, ON 2L OXYGEN BY NC, O2 SAT 100%. NO SIGN OF DISTRESS NOTED. SKIN WARM, DRY, NON DIAPHORETIC. IV ON RIGHT HAND 24G, IS INFUSING FLUID ORDER. TUNNEL CATH NOTED RIGHT UPPER CHEST FOR HD. PATIENT DENIES ANY PAIN OR DISCOMFORT. ABLE TO MAKE NEEDS KNOWN. PLAN OF CARE DISCUSSED. PRECAUTION IN PLACE. CALL LIGHT WITHIN REACH. WILL CONTINUE TO MONITOR.
[2021-07-27 20:00] VITALS: BP 133/71
--- NOTE | 2021-07-27 20:12 | NUR ---
PT WAS SEEN AND ASSESSED. PT ON 1L NASAL CANNULA. SPO2 97%. NO RESPIRATORY DISTRESS NOTED AT THIS TIME. WILL CONTINUE TO MONITOR PT.
--- NOTE | 2021-07-27 20:57 | NUR ---
GIVE REPORT TO ELIE TURCIOS DUE TO CHANGE OF ASSIGNMENT.
--- NOTE | 2021-07-27 21:30 | NUR ---
PT SITTING UP IN BED SHE IS AOX 3 WITH PERIODS OF CONFUSION. SHE IS ON 2 LITERS VIA N/C. 02 IS 100%. PT HAS A MALDONADO CATHETER IN PLACE DRAINING YELLOW URINE. PT IS RUNNING D5N/S AT 35MLS/HR VIA R HAND 24G. PT FINGERSTICK IS 179, SHE WAS GIVEN 2 UNITS PER HUMALOG S/S. PT DECLINED TO TAKE ELIQUIS. PT UNABLE TO REMEMBER WHY SHE WAS TAKING ELIQUIS EVEN AFTER PROMPTING, PT DECLINED TO TAKE THE MEDICATION. ALL REQUESTED NEEDS ATTENDED , PT REPOSITIONED IN BED AND RECEIVED REQUESTED SANDWICH. ALL ORDERED PRECAUTIONS IN PLACE.
[2021-07-28] VITALS: BP 141/79
--- NOTE | 2021-07-28 | NUR ---
ROUNDS DONE, PT IN BED RESTING, NO C/O VOICED. FLUIDS RUNNING ORDERED 02 IS 99% ON 2 LITERS VIA N/C.
[2021-07-28 04:00] VITALS: BP 145/88
[2021-07-28] MEDS: BLOOD GLUCOSE MONITORING 1 DEV DEV FS SCH ×2 (05:19→12:18)
--- NOTE | 2021-07-28 05:30 | NUR ---
PT WAS TURNED, CHANGED AND REPOSITIONED IN BED FINGERSTICK IS 139, NO COVERAGE NEEDED. V/S STABLE ALL ORDERED PRECAUTIONS IN PLACE.
[2021-07-28 07:20] LABS: BASOPHILS % (AUTO) 0.2 % (0.0-2.0); EOSINOPHILS % (AUTO) 0.1 % (0.0-4.0); HEMATOCRIT 34.3 % (36-48); HEMOGLOBIN 10.6 g/dL (12.0-16.0); LYMPHOCYTES # (AUTO) 1.1 K/uL (2.5-16.5); LYMPHOCYTES % (AUTO) 25.5 % (20.5-51.1); MEAN CORPUSCULAR HEMOGLOBIN 30 pg (27-31); MEAN CORPUSCULAR HGB CONC 31 g/dL (33-37); MEAN CORPUSCULAR VOLUME 96.9 fL (80-94); MONOCYTES # (AUTO) 0.6 K/uL (0.8-1.0); MONOCYTES % (AUTO) 13.4 % (1.7-9.3); NEUTROPHILS # (AUTO) 2.6 K/uL (1.8-7.7); NEUTROPHILS % (AUTO) 60.8 % (42.2-75.2); PLATELET COUNT (AUTO) 97 K/uL (140-450); RED BLOOD CELL COUNT(AUTO) 3.54 MIL/uL (4.20-5.40); WHITE BLOOD COUNT (AUTO) 4.3 K/uL (4.8-10.8)
[2021-07-28 07:28] LABS: ANION GAP 12.9 (8-16); ASPARTATE AMINOTRANSFERASE 23 U/L (15-37); CARBON DIOXIDE 27.2 mmol/L (21-32); CHLORIDE 98 mmol/L (98-107); CREATININE 3.5 mg/dL (0.6-1.3); GLUCOSE 119 mg/dL (74-106); POTASSIUM 4.1 mmol/L (3.5-5.1); SODIUM SERUM 134 mmol/L (136-145); TOTAL BILIRUBIN 0.7 mg/dL (0.0-1.0); UREA NITROGEN, BLOOD 32 mg/dL (7-18)
--- NOTE | 2021-07-28 07:30 | NUR ---
RECEIVED REPORT FROM NIGHT NURSE AT BEDSIDE FOR CONTINUITY OF CARE. PT IS AA&OX3. PT IS ON 2L NC BREATHING NORMAL AND UNLABORED. NURSE REPORTS PT IS A-FLUTTER/A-FIB ON TELE. PT HAS FC IN PLACE WITH MINIMAL OUTPUT DUE TO HEMODIALYSIS. IV ON RH 24 G INTACT AND PATENT. S/P HD 07/27 2.7 L OUTPUT. PT HAS RIGHT UPPER CHEST TUNNEL CATHETER FOR HEMODIALYSIS. PLAN OF CARE DISCUSSED. SAFETY PRECAUTIONS IN PLACE. WILL CONTINUE TO MONITOR.
[2021-07-28 08:00] VITALS: BP 140/86
[2021-07-28] MEDS ORDERED: METOPROLOL SUCCINATE 50 MG TABER PO SCH (09:00)
[2021-07-28] MEDS: APIXABAN 2.5 MG TAB PO SCH (09:00)
[2021-07-28] MEDS: guaiFENesin 600 MG TABER PO SCH (09:51)
[2021-07-28] MEDS: DULoxetine 30 MG CAPDR PO SCH (09:51)
[2021-07-28] MEDS: GABAPENTIN 300 MG CAP PO SCH (09:53)
[2021-07-28] MEDS: ISOSORBIDE DINITRATE 10 MG TAB PO SCH ×2 (09:53→12:22)
[2021-07-28] MEDS: ASCORBIC ACID 500 MG TAB PO SCH (09:53)
[2021-07-28] MEDS: PANTOPRAZOLE 40 MG TABEC PO SCH (09:53)
[2021-07-28] MEDS: ATORVASTATIN 20 MG TAB PO SCH (09:54)
[2021-07-28] MEDS: ZINC SULF 220 MG CAP PO SCH (09:54)
--- NOTE | 2021-07-28 10:00 | NUR ---
ALL SCHEDULED MEDS GIVEN. PT IS STABLE. NO DISTRESS NOTED. WILL CONTINUE TO MONITOR.
[2021-07-28] MEDS ORDERED: PANT40EC56 PO (10:10)
[2021-07-28] MEDS ORDERED: ZINC220C29 PO (10:10)
[2021-07-28] MEDS ORDERED: ACET-1182 PO (10:10)
[2021-07-28] MEDS ORDERED: VITC500 PO (10:10)
[2021-07-28] MEDS ORDERED: ALBU0.0912 INH (10:10)
[2021-07-28] MEDS ORDERED: DOCU-299 PO (10:10)
[2021-07-28] MEDS ORDERED: METO50TE2 PO (10:10)
[2021-07-28] MEDS ORDERED: DEXA6TAB1 PO (10:10)
[2021-07-28] MEDS ORDERED: ISOS10TA9 PO (10:10)
[2021-07-28] MEDS ORDERED: GUAI-791 PO (10:10)
[2021-07-28] MEDS ORDERED: LEVO750P5 IV (10:13)
[2021-07-28 12:00] VITALS: BP 104/74
--- NOTE | 2021-07-28 14:45 | NUR ---
NOTIFIED BY LIDIA OLIVEIRA THAT PATIENT WILL BE [place]SP[place] [facility] [place].
--- NOTE | 2021-07-28 14:50 | NUR ---
CALLED [facility] TO GIVE REPORT. UNABLE TO REACH [facility] RN. WILL TRY AGAIN.
[2021-07-28 14:57] VITALS: BP 104/74
--- NOTE | 2021-07-28 16:00 | NUR ---
PATIENT DISCHARGED OFF THE UNIT. PATIENT IS BEING TRANSPORTED [place] [facility] [place] [facility]. PATIENT DISCHARGED WITH IV ON RH 24G FOR IV ABX TREATMENT AT [facility].
--- NOTE | 2021-07-28 16:00 | NUR ---
ENDORSED REPORT TO ELIE HARO. NOTIFIED HER THAT PATIENT GOT PICKED UP AT 1600 AND WILL BE AT THE FACILITY SHORTLY. Addendum: 07/28/21 at 1618 by Rafita Fry RN RN WRONG TIMESTAMP*
--- NOTE | 2021-07-28 16:07 | NUR ---
CONTACTING [facility] FOR PATIENT REPORT. CURRENTLY ON HOLD AND WAITING TO GIVE REPORT TO RN AT [facility].
--- NOTE | 2021-07-28 16:18 | NUR ---
ENDORSED REPORT TO ELIE HARO. NOTIFIED HER THAT PATIENT GOT PICKED UP AT 1600 AND WILL BE AT THE FACILITY SHORTLY.
== END 2021-07-28 16:00 | DRG 871 ==
LOC: MED 08:39 → MTU 10:53
PROVIDERS: ADMIT Family Medicine; ATTEND Family Medicine
PROC: XW033E5 Introduction of Remdesivir Anti-infective into Peripheral Vein, Percutaneous Approach, New Technology Group 5 (ICD-10-PCS; principal; 2021-07-23)
PROC: 5A1D70Z Performance of Urinary Filtration, Intermittent, Less than 6 Hours Per Day (ICD-10-PCS; 2021-07-23)
PROC: 5A1D70Z Performance of Urinary Filtration, Intermittent, Less than 6 Hours Per Day (ICD-10-PCS; 2021-07-25)
PROC: 5A1D70Z Performance of Urinary Filtration, Intermittent, Less than 6 Hours Per Day (ICD-10-PCS; 2021-07-27)
DX: A41.9 Sepsis, unspecified organism (principal); U07.1 COVID-19; I50.43 Acute on chronic combined systolic (congestive) and diastolic (congestive) heart failure; J96.01 Acute respiratory failure with hypoxia; N18.6 End stage renal disease; J12.82 Pneumonia due to coronavirus disease 2019; N17.0 Acute kidney failure with tubular necrosis; I21.A1 Myocardial infarction type 2; J15.9 Unspecified bacterial pneumonia; E44.1 Mild protein-calorie malnutrition; I13.2 Hypertensive heart and chronic kidney disease with heart failure and with stage 5 chronic kidney disease, or end stage renal disease; N39.0 Urinary tract infection, site not specified; J44.0 Chronic obstructive pulmonary disease with (acute) lower respiratory infection; I42.9 Cardiomyopathy, unspecified; G93.40 Encephalopathy, unspecified; D63.8 Anemia in other chronic diseases classified elsewhere; D69.6 Thrombocytopenia, unspecified; E11.22 Type 2 diabetes mellitus with diabetic chronic kidney disease; F03.90 Unspecified dementia, unspecified severity, without behavioral disturbance, psychotic disturbance, mood disturbance, and anxiety; I25.10 Atherosclerotic heart disease of native coronary artery without angina pectoris; I48.0 Paroxysmal atrial fibrillation; K21.9 Gastro-esophageal reflux disease without esophagitis; Z88.0 Allergy status to penicillin; Z99.2 Dependence on renal dialysis; Z79.01 Long term (current) use of anticoagulants; Z79.899 Other long term (current) drug therapy; Z68.22 Body mass index [BMI] 22.0-22.9, adult
CPT/HCPCS: 36415; 70450; 71045; 80053; 81001; 82150; 82948; 83036; 83605; 83615; 83690; 83735; 83880; 84100; 84436; 84439; 84443; 84479; 84484; 85025; 85379; 85610; 85651; 85730; 86140; 86886; 86900; 86901; 87040; 87081; 87086; 90935; 92610; 92700; 93005; 96365; 97110; 97163-GP; 99285; J1644; J1940; J1956; U0003

== ENCOUNTER 2021-07-29 15:52 | Inpatient (IN) | payer OTHER, MEDICAID ==
[~2021-07-29] VITALS: Ht 162.6 cm; Wt 84.8 kg
[~2021-07-29 15:52] MED LIST changes: +ACET-1182 PO; +ALBU0.0912 INH; +DEXA6TAB1 PO; +DOCU-299 PO; +GUAI-791 PO; +ISOS10TA9 PO; -IV rocephin IV; +LEVO750P5 IV; +METO50TE2 PO; +PANT40EC56 PO; -TRAM50TA3 PO; +VITC500 PO; +ZINC220C29 PO
[2021-07-29 16:02] VITALS: BP 136/67
--- NOTE | 2021-07-29 16:07 | NUR ---
Note raj in EDM - 07/29/21 at 1610 by [email or web address] 75 Y FEMALE BIBA DUE TO GENERAL WEAKNESS AND NEEDING DIALYSIS. PER EMS "PT WAS SCHEDULED FOR DIAYSIS TODAY, BUT BECAUSE SHE IS COVID+ NO ONE WOULD TRANSPORT HER OR PERFORM DIAYLSIS ON HER." PT DENIES ANY SOB OR CHEST PAIN PMH: CKD, HTN, DM, CHF, COVID+ ALLERGIES: PENCILLINS
--- NOTE | 2021-07-29 16:10 | NUR ---
Note undone in EDM - 07/29/21 at 1611 by [email or web address] 75 Y FEMALE BIBA DUE TO GENERAL WEAKNESS AND NEEDING DIALYSIS. PER EMS "PT WAS SCHEDULED FOR DIAYSIS TODAY, BUT BECAUSE SHE IS COVID+ NO ONE WOULD TRANSPORT HER OR PERFORM DIAYLSIS ON HER." PT HAS PORT R UPPER CHEST ALONG WITH 20 G IV ON R HAND. PT BASELINE A&OX3 (UNKNOWN DATE.) PT DENIES ANY SOB OR CHEST PAIN PMH: CKD, HTN, DM, CHF, COVID+ ALLERGIES: PENCILLINS
--- NOTE | 2021-07-29 16:12 | NUR ---
75 Y FEMALE BIBA [place] [facility] DUE TO GENERAL WEAKNESS AND NEEDING DIALYSIS. PER EMS "PT WAS SCHEDULED FOR DIAYSIS TODAY, BUT BECAUSE SHE IS COVID+ NO ONE WOULD TRANSPORT HER OR PERFORM DIAYLSIS ON HER." PT HAS PORT R UPPER CHEST ALONG WITH 20 G IV ON R HAND. PT BASELINE A&OX3 (UNKNOWN DATE.) PT DENIES ANY SOB OR CHEST PAIN. EQUAL CHEST RISE AND FALL NOTED OF CHEST. PT ON 2L OXYGEN VIA NC FROM [facility]. PMH: CKD, HTN, DM, CHF, COVID+ ALLERGIES: PENCILLINS
--- NOTE | 2021-07-29 16:30 | NUR ---
LAB BEDSIDE COLLECTING BLOOD WORK
--- NOTE | 2021-07-29 16:39 | NUR ---
SAID BEDSIDE EVALUATING PT
[2021-07-29 16:48] LABS: HEMATOCRIT 37.3 % (36-48); HEMOGLOBIN 11.2 g/dL (12.0-16.0); LYMPHOCYTES # (AUTO) 0.4 K/uL (2.5-16.5); LYMPHOCYTES % (AUTO) 6.8 % (20.5-51.1); MEAN CORPUSCULAR HEMOGLOBIN 30 pg (27-31); MEAN CORPUSCULAR HGB CONC 30 g/dL (33-37); MEAN CORPUSCULAR VOLUME 98.2 fL (80-94); MONOCYTES # (AUTO) 0.2 K/uL (0.8-1.0); MONOCYTES % (AUTO) 2.7 % (1.7-9.3); NEUTROPHILS # (AUTO) 5.5 K/uL (1.8-7.7); NEUTROPHILS % (AUTO) 90.5 % (42.2-75.2); PLATELET COUNT (AUTO) 90 K/uL (140-450); RED CELL DISTRIBUTION WIDTH 17.9 % (11.6-13.7); WHITE BLOOD COUNT (AUTO) 6.1 K/uL (4.8-10.8)
--- NOTE | 2021-07-29 16:57 | NUR ---
XRAY BEDSIDE WITH PT
[2021-07-29 17:10] LABS: ALBUMIN 3.3 g/dL (3.4-5.0); ANION GAP 13.5 (8-16); ASPARTATE AMINOTRANSFERASE 22 U/L (15-37); CARBON DIOXIDE 25.5 mmol/L (21-32); CHLORIDE 97 mmol/L (98-107); GLUCOSE 164 mg/dL (74-106); SODIUM SERUM 131 mmol/L (136-145); TOTAL BILIRUBIN 0.8 mg/dL (0.0-1.0); UREA NITROGEN, BLOOD 47 mg/dL (7-18)
[2021-07-29 17:18] LABS: CREATININE 4.6 mg/dL (0.6-1.3)
--- NOTE | 2021-07-29 18:12 | NUR ---
PT CURRENTLY RESTING WITH EYES CLOSED AND COVERED WITH BLANKET. BED IN LOWEST POSITION WITH SIDERAIL X2 UP. PT ON COIN MACHINE SERVICER REPAIRER AND VITAL SIGNS STABLE. WILL CONTINUE TO MONITOR
--- NOTE | 2021-07-29 19:23 | NUR ---
Pt report given to ELIE ADKINS. Transfer of care at this time.
--- NOTE | 2021-07-29 19:30 | NUR ---
PT IS RESTING, OPENS EYES IF TOUCHED. EQUAL RISE AND FALL OF CHEST WALL. ALL NEEDS MET AT THIS TIME. BED LOCKED IN LOWEST POSITION, SIDE RAILS X2. VSS.
--- NOTE | 2021-07-29 21:22 | NUR ---
REMOVED SOCKS PER REQUEST AND REPOSITIONED.
--- NOTE | 2021-07-29 23:02 | NUR ---
PLACED SOCKS BACK ON PT PER REQUEST. OFFERED TO CHANGE PT, PT STATED SHE IS OK AT THIS TIME. VSS. REPOSITIONED PT, APPLIED PILLOW TO R SIDE FOR SUPPORT. BED LOCKED IN LOWEST POSITION,SIDE RAILS X2.
--- NOTE | 2021-07-30 01:08 | NUR ---
PT IS RESTING, OPENS EYES TO SOUND. EQUAL RISE AND FALL OF CHEST WALL. VSS. PT IN STABLE CONDITION. ALL NEEDS MET AT THIS TIME. BED LOCKED IN LOWEST POSITION.
--- NOTE | 2021-07-30 07:00 | NUR ---
PT IS AWAKE, TALKING TO SELF. PT IS IN STABLE CONDITION, VSS. ALL NEEDS MET AT THIS TIME. BED LOCKED IN LOWEST POSITION, SIDE RAILS X2.
--- NOTE | 2021-07-30 07:30 | NUR ---
REPORT RECEIVED FROM JED DELGADILLO FOR CONTINUITY OF CARE. A&OX4. NON AMBULATORY. SR ON MONITOR. SKIN WARM AND DRY. RT ARM SHUNT NOTED. PALPABLE THRILLS. IV SITE RT HAND 24. INTACT, PATENT, GOOD BLOOD RETURN. HOB 30 DEGREES. BED LOCKED IN LOWEST POSITION. WILL CONTINUE TO MONITOR. Addendum: 07/30/21 at 1606 by [email or web address] SHON CHEST PORT CATH
--- NOTE | 2021-07-30 09:30 | NUR ---
Patient awake, appears to be resting comfortably in bed. Vital Signs within normal limits. Respirations even and unlabored. Will continue to monitor.
[2021-07-30] MEDS ORDERED: HYDROcodone/APAP 5/325 MG 1 TAB TAB PO PRN (10:20)
[2021-07-30] MEDS ORDERED: ZOLPIDEM 5 MG TAB PO PRN (10:20)
[2021-07-30] MEDS ORDERED: MAG SULF 2000 MG/WATER PREMIX 50 ML IV PRN (10:20)
[2021-07-30] MEDS ORDERED: ACETAMINOPHEN 325 MG TAB PO PRN (10:20)
[2021-07-30] MEDS ORDERED: MORPHINE SULFATE 2 MG/ML SYR IVP PRN (10:20)
[2021-07-30] MEDS ORDERED: ONDANSETRON 4 MG/2 ML VIAL IVP PRN (10:20)
[2021-07-30] MEDS ORDERED: LORazepam 2 MG/ML VIAL IM/IVP PRN (10:20)
[2021-07-30] MEDS ORDERED: POTASSIUM CHLORIDE 10 MEQ TABER PO PRN (10:20)
[2021-07-30] MEDS ORDERED: SODIUM PHOS / POTASSIUM PHOS 1 PKT PDR PO PRN (10:20)
[2021-07-30] MEDS ORDERED: DOCUSATE SODIUM 100 MG GELCAP PO PRN (10:20)
[2021-07-30] MEDS: NACL 0.9% 1,000 ML IV SCH (11:01)
--- NOTE | 2021-07-30 11:23 | NUR ---
LAB AT BEDSIDE
[2021-07-30 12:01] LABS: PROTHROMBIN TIME 11.3 secs (10.8-13.4)
[2021-07-30 12:11] LABS: CHOL/HDL RATIO 3.3 (1-4.5); FREE T4 (FREE THYROXINE) 0.66 ng/dL (0.76-1.46); PHOSPHORUS 6.4 mg/dL (2.5-4.9); THYROID STIMULATING HORMONE 2.52 uIU/mL (0.34-3.74)
--- NOTE | 2021-07-30 13:45 | NUR ---
Patient awake, appears to be resting comfortably in bed. Vital Signs within normal limits. Respirations even and unlabored. Will continue to monitor.
--- NOTE | 2021-07-30 14:03 | NUR ---
lunch at bedside
--- NOTE | 2021-07-30 14:55 | NUR ---
SPOKE WITH ELIE EVANSCLEAN ROOM TECHNICIAN NURSING FOR PT UPDATES.
--- NOTE | 2021-07-30 15:00 | NUR ---
pt requesting for water. water provided.
--- NOTE | 2021-07-30 16:16 | NUR ---
Patient will be admitted to care of DR SANTIZO. Admited to MED SURG. Will go to room 117. Belongings list completed. Report to HARVINDER DELGADILLO.
[2021-07-30] MEDS ORDERED: DEXTROSE 50% 50 ML SYR IVP PRN ×2 (16:40)
[2021-07-30] MEDS ORDERED: INSULIN LISPRO SLIDING SCALE 100 UNITS/ML VIAL SUBQ PRN ×2 (16:40)
--- NOTE | 2021-07-30 16:55 | NUR ---
PATIENT ARRIVED ON FLOOR FROM ER. PUI, PATIENT PREVIOUSLY ADMITTED LAST SUNDAY, RAPID AND PCR POSITIVE. ON 2L O2 VIA NC. HAS IV TO RIGHT HAND 22G INFUSING IVF WELL. VERBALIZED PLAN OF CARE, PATIENT VERBALIZED UNDERSTANDING. CALLED DAUGHTER ALDO TO UPDATE HER ABOUT PATIENT'S ADMISSION, NO ANSWER, LEFT VOICEMAIL TO CALL HOSPITAL BACK. PATIENT ORIENTED TO CALL LIGHT, BATHROOM, TV. SAFETY PRECAUTIONS IN PLACE, CALL LIGHT WITHIN REACH, WILL CONTINUE TO MONITOR PATIENT.
--- NOTE | 2021-07-30 16:57 | NUR ---
PAGED DR. MCCRACKEN. DR. GREEN SUPERVISORY IT SPECIALIST. DR. GREEN CALLED BACK. MADE HIM AWARE OF PT'S REGULAR HD SCHEDULE OF [facility], PT WAS LAST DIALYZED ON 07/27. HE SAID HE WILL FIND OUT WHO IS COVERING DR. MCCRACKEN AND WILL CALL US BACK. WILL CONTINUE TO MONITOR PATIENT.
--- NOTE | 2021-07-30 17:11 | NUR ---
DR CAMPBELL TAKING CARE OF DR. MCCRACKEN'S PATIENTS. SAID TO HAVE RN PALLIATIVE CARE CALL HIM FOR ORDERS. RN VERBALIZED UNDERSTANDING. RN PALLIATIVE CARE CURRENTLY AT [facility] DIALYZING ANOTHER PATIENT, IS AWARE PATIENT WILL BE ON FLOOR IN ROOM 117 AND WILL BE BACK.
[2021-07-30 17:45] VITALS: BP 117/78
--- NOTE | 2021-07-30 19:30 | NUR ---
REPORT GIVEN TO INSURANCE SOLICITOR RN. PATIENT CURRENTLY GETTING HEMODIALYSIS. SHOULD BE FINISHED BY 9 PM.
[2021-07-30 20:00] VITALS: BP 130/55
--- NOTE | 2021-07-30 20:00 | NUR ---
Assumed care last night. HD was in progress at the time. 2109 HD was done. 2.5 liters off. I did spend some time with the patient. PM care was done. BG = 90 I gave her some fruit cup. She did not eat to much of it. Will continue to monitor.
[2021-07-30] MEDS ORDERED: BLOOD GLUCOSE MONITORING 1 DEV DEV FS SCH (21:00)
[2021-07-30] MEDS: BLOOD GLUCOSE MONITORING 1 DEV DEV FS SCH (21:00)
[2021-07-30] MEDS: APIXABAN 2.5 MG TAB PO SCH (22:44)
[2021-07-30] MEDS: GABAPENTIN 300 MG CAP PO SCH (22:44)
[2021-07-30] MEDS: FUROSEMIDE 20 MG/2 ML VIAL IVP SCH (22:45)
[2021-07-31] VITALS (28 sets, daily range): BP systolic 77–156; BP diastolic 39–94
--- NOTE | 2021-07-31 | NUR ---
Sleeping calmly. In no acute distress. Will continue to monitor.
[2021-07-31] MEDS: BLOOD GLUCOSE MONITORING 1 DEV DEV FS SCH ×4 (06:49→20:12)
--- NOTE | 2021-07-31 06:49 | NUR ---
PT ARRIVED IN ICU AND PLACED ON VENT. SETTINGS AC 20, VT425, PEEP 7 AND FIO2 100%. VENT IS PLUGGED INTO A RED OUTLET WITH ALARMS ON AND FUNCTIONING. ETT IS 7.5 SECURED @24 TEETH/GUM. WILL CONTINUE TO MONITOR.
--- NOTE | 2021-07-31 06:50 | NUR ---
0630 Code blue called on after finding her non responsive. BG = 61 D50 given. I amp Epi given. CPR in progress. 0633 Code stopped after being intubated by . 0689 Daughter Ms. Negron contacted and notified about her mother's change in condition. She will be visiting with mom anywhere from 080 O' clock. Will endorse care to the RAIL TRANSPORTATION TABELER.
--- NOTE | 2021-07-31 06:59 | NUR ---
LOW SPO2 PEEP INCREASED TO [id number], SPO2 NOW 88%. NURSE BEDSIDE AND AWARE. WILL CONTINUE TO MONITOR.
[2021-07-31] MEDS ORDERED: NOREPINEPHRINE 4 MG/4 ML VIAL IV ONE ×2 (07:13→09:58)
[2021-07-31] MEDS: NOREPINEPHRINE 4 MG in DEXTROSE 5% 250 ML IV PRN ×3 (07:20→19:55)
--- NOTE | 2021-07-31 07:20 | NUR ---
LEVOPHED STARTED FOR LOW BP
--- NOTE | 2021-07-31 07:20 | NUR ---
Care has been endorsed to Angelita ELIE
--- NOTE | 2021-07-31 07:55 | NUR ---
SECOND IV INSERTED TO LEFT HAND 20G. FLUSHES WELL SITE WNL
[2021-07-31] MEDS: CALCIUM ACETATE 667 MG TAB PO SCH ×3 (08:00→17:00)
--- NOTE | 2021-07-31 08:03 | NUR ---
RADIOLOGY AT BEDSIDE FOR CXR
[2021-07-31] MEDS: VIT-B COMP/VIT-C/FOLIC ACID 1 TAB PO SCH (09:00)
[2021-07-31] MEDS: APIXABAN 2.5 MG TAB PO SCH ×2 (09:00→20:13)
[2021-07-31] MEDS ORDERED: METOPROLOL SUCCINATE 50 MG TABER PO SCH (09:00)
[2021-07-31] MEDS ORDERED: PANTOPRAZOLE 40 MG TABEC PO SCH (09:00)
[2021-07-31] MEDS: FUROSEMIDE 20 MG/2 ML VIAL IVP SCH (09:00)
[2021-07-31] MEDS ORDERED: ISOSORBIDE DINITRATE 10 MG TAB PO SCH (09:00)
[2021-07-31] MEDS ORDERED: DULoxetine 30 MG CAPDR PO SCH (09:00)
[2021-07-31] MEDS: GABAPENTIN 300 MG CAP PO SCH (09:00)
--- NOTE | 2021-07-31 09:17 | NUR ---
PT'S DAUGHTER AND NEPHEW AT BEDSIDE, DR SANTIZO ALSO ARRIVED TO BEDSIDE TO DISCUSS PT CONDITION
--- NOTE | 2021-07-31 09:50 | NUR ---
ABG RESULTS GIVEN TO
--- NOTE | 2021-07-31 09:51 | NUR ---
FIO2 DECREASED TO 80%. WILL CONTINUE TO MONITOR.
[2021-07-31 09:54] LABS: BASOPHILS % (AUTO) 0.3 % (0.0-2.0); EOSINOPHILS % (AUTO) 0.2 % (0.0-4.0); HEMATOCRIT 36.4 % (36-48); HEMOGLOBIN 10.8 g/dL (12.0-16.0); LYMPHOCYTES # (AUTO) 1.7 K/uL (2.5-16.5); LYMPHOCYTES % (AUTO) 28.7 % (20.5-51.1); MEAN CORPUSCULAR HEMOGLOBIN 30 pg (27-31); MEAN CORPUSCULAR HGB CONC 30 g/dL (33-37); MEAN CORPUSCULAR VOLUME 100.8 fL (80-94); MONOCYTES # (AUTO) 0.3 K/uL (0.8-1.0); MONOCYTES % (AUTO) 4.8 % (1.7-9.3); NEUTROPHILS # (AUTO) 3.9 K/uL (1.8-7.7); PLATELET COUNT (AUTO) 96 K/uL (140-450); RED BLOOD CELL COUNT(AUTO) 3.61 MIL/uL (4.20-5.40); RED CELL DISTRIBUTION WIDTH 19.1 % (11.6-13.7); WHITE BLOOD COUNT (AUTO) 5.9 K/uL (4.8-10.8)
[2021-07-31 10:05] LABS: MAGNESIUM 1.6 mg/dL (1.8-2.4); PHOSPHORUS 4.7 mg/dL (2.5-4.9)
[2021-07-31] MEDS: NACL 0.9% 1,000 ML IV SCH (10:20)
[2021-07-31] MEDS: PANTOPRAZOLE 40 MG INJ VIAL IVP SCH (10:40)
--- NOTE | 2021-07-31 10:49 | NUR ---
LARGE BM X3, FIRST BM SOLID BALLS, THEN LIQ LIGHT BROWN MIXED WITH BLOODY MUCUS. PERICARE DONE, CHG WIPE DONE, BEDLINEN CHANGED, GOWN CHANGED, STOOL OB COLLECTED, RECTAL TUBE PLACED, MALDONADO CATH PLACED, SMALL AMT OF CLOUDY RODRIGUEZ COLOR URINE RETURNED.
[2021-07-31 11:19] LABS: ANION GAP 17.4 (8-16); CARBON DIOXIDE 20.6 mmol/L (21-32); CHLORIDE 93 mmol/L (98-107); SODIUM SERUM 127 mmol/L (136-145); UREA NITROGEN, BLOOD 35 mg/dL (7-18)
[2021-07-31 11:21] LABS: CREATININE 4.2 mg/dL (0.6-1.3); GLUCOSE 428 mg/dL (74-106)
--- NOTE | 2021-07-31 12:00 | NUR ---
DR CAMPBELL PAGED AND CALLED BACK, PT CONDITION REPORTED, LAB RESULTS REPORTED, PERMISSION TO PLACE PICC LINE OBTAINED. NO NEW ORDERS AT THIS TIME.
--- NOTE | 2021-07-31 12:08 | NUR ---
DR SANTIZO CALLED TO NOTIFY OF CHANGE IN CARDIAC RHYTHM, PT NOW IN CONTROLLED A FIB AT 98 BPM WITH FREQ PVC. ALSO NOTIFIED OF BLOODY MUCOUS STOOL, ORDERS RECEIVED
--- NOTE | 2021-07-31 13:05 | NUR ---
DR GONZALEZ CALLED TO NOTIFY OF FREQ PVCs AND CONTROLLED AFIB/AFLUTTER, ORDER RECEIVED FOR AMIODARONE LOADING DOSE AND DRIP
[2021-07-31] MEDS ORDERED: AMIODARONE 150 MG in DEXTROSE 5% 100 ML IV SCH (13:10)
--- NOTE | 2021-07-31 13:29 | NUR ---
PICC RN MADE AWARE OF ORDER
--- NOTE | 2021-07-31 13:39 | NUR ---
FIO2 TITRATED TO 60% NURSE MADE AWARE. WILL CONTINUE TO MONITOR.
--- NOTE | 2021-07-31 13:55 | NUR ---
AMIODARONE DRIP STARTED PER ORDER
[2021-07-31] MEDS: AMIODARONE 450 MG in DEXTROSE 5% 250 ML IV SCH ×2 (14:30→22:31)
--- NOTE | 2021-07-31 14:53 | NUR ---
DR PORTILLO AT BEDSIDE
--- NOTE | 2021-07-31 14:56 | NUR ---
BEDSIDE DISCUSSED ABG RESULTS, PT STATUS AND VENT SETTINGS. NO CHANGES AT THIS TIME.
--- NOTE | 2021-07-31 15:35 | NUR ---
RETURNED FROM CT WITH NO ISSUES. PT PLACED BACK ON VENT WITH DOCUMENTED SETTINGS. NO DISTRESS NOTED. WILL CONTINUE TO MONITOR.
--- NOTE | 2021-07-31 15:35 | NUR ---
PT TAKEN TO CT WITH RT AND RN FOR CT HEAD WITHOUT CONTRAST, RETURNED TO ICU 4 AT THIS TIME
--- NOTE | 2021-07-31 15:56 | NUR ---
DR CAMPBELL AT BEDSIDE
[2021-07-31] MEDS ORDERED: CEFEPIME 1,000 MG in DEXTROSE 5% 50 ML IV SCH (16:00)
--- NOTE | 2021-07-31 17:15 | NUR ---
STOOL LEAKING OUT FROM RECTUM, PERICARE DONE, MALDONADO CARE DONE, LINEN AND PADS CHANGED, ORAL CARE DONE.
--- NOTE | 2021-07-31 17:55 | NUR ---
PICC LINE NURSE AT BEDSIDE
--- NOTE | 2021-07-31 19:07 | NUR ---
PER PICC LINE NURSE, BLOOD GAS DONE WITH BLOOD DRAWN FROM PICC TO CONFIRM VENOUS BLOOD RETURN.
--- NOTE | 2021-07-31 19:12 | NUR ---
PER DOCTOR ALVERTO FRANCO TO USE PICC LINE.
--- NOTE | 2021-07-31 19:30 | NUR ---
RECEIVED PATIENT FROM AM SHIFT NURSE FOR CONTINUITY OF CARE. EYES OPEN, NO TRACKING. SLUGGISH PUPILLARY REACTION NOTED. ETT TO VENT. RESPIRATIONS EVEN, UNLABORED. O2SAT 93%. RT AT BEDSIDE. S1/S2 AUSCULTATED. FLACC 0. SKIN WARM, DRY. SALINE LOCK TO RIGHT AND LEFT HAND 20G PATENT/INTACT. LEFT UPPER ARM PICC NOTED, INFUSING LEVOPHED AND AMIODARONE. RIGHT SUBCLAVIAN TUNNELED CATHETER NOTED. DRESSING CLEAN/DRY AND INTACT. NGT NOTED TO LEFT NARE. ABDOMEN SOFT, NONTENDER NONDISTENDED. BOWEL SOUNDS ACTIVE x4 QUADRANTS. MALDONADO CATHETER PATENT WITH DARK URINE NOTED IN DRAINAGE BAG. RECTAL TUBE NOTED WITH DARK LIQUID STOOL NOTED. PLAN OF CARE DISCUSSED. SAFETY PRECAUTIONS IN PLACE. ISOLATION PRECAUTIONS OBSERVED BY ALL STAFF.
[2021-07-31] MEDS: NOREPINEPHRINE 8 MG in DEXTROSE 5% 250 ML IV PRN (20:28)
--- NOTE | 2021-07-31 21:30 | NUR ---
PATIENT TURNED AND REPOSITIONED FOR COMFORT. NO S/S RESPIRATORY DISTRESS. FLACC 0. PATIENT IS CLEAN/DRY. CLOSE MONITORING BY ALL STAFF. ISOLATION PRECAUTIONS OBSERVED.
--- NOTE | 2021-07-31 23:31 | NUR ---
NO S/S RESPIRATORY DISTRESS. FLACC 0. PATIENT IS CLEAN/DRY. CLOSE MONITORING BY ALL STAFF. ISOLATION PRECAUTIONS OBSERVED.
[2021-08-01] VITALS (29 sets, daily range): BP systolic 95–156; BP diastolic 50–87
--- NOTE | 2021-08-01 01:43 | NUR ---
VAP ORAL CARE RENDERED.
[2021-08-01] MEDS: NOREPINEPHRINE 8 MG in DEXTROSE 5% 250 ML IV PRN ×2 (02:45→15:08)
--- NOTE | 2021-08-01 03:23 | NUR ---
NO S/S RESPIRATORY DISTRESS. FLACC 0. PATIENT IS CLEAN/DRY. TURNED AND REPOSITIONED. CLOSE MONITORING BY ALL STAFF. ISOLATION PRECAUTIONS OBSERVED.
--- NOTE | 2021-08-01 05:12 | NUR ---
ALL NEEDS ANTICIPATED AND MET. NO S/S RESPIRATORY DISTRESS. FLACC 0. PATIENT IS CLEAN/DRY. CLOSE MONITORING BY ALL STAFF. ISOLATION PRECAUTIONS OBSERVED.
[2021-08-01] MEDS: BLOOD GLUCOSE MONITORING 1 DEV DEV FS SCH ×4 (06:30→21:00)
[2021-08-01 06:32] LABS: BASOPHILS % (AUTO) 0.1 % (0.0-2.0); EOSINOPHILS % (AUTO) 0.1 % (0.0-4.0); HEMATOCRIT 33.8 % (36-48); HEMOGLOBIN 10.5 g/dL (12.0-16.0); LYMPHOCYTES # (AUTO) 0.7 K/uL (2.5-16.5); LYMPHOCYTES % (AUTO) 6.1 % (20.5-51.1); MEAN CORPUSCULAR HEMOGLOBIN 29 pg (27-31); MEAN CORPUSCULAR HGB CONC 31 g/dL (33-37); MEAN CORPUSCULAR VOLUME 93.8 fL (80-94); MONOCYTES # (AUTO) 0.6 K/uL (0.8-1.0); MONOCYTES % (AUTO) 5.3 % (1.7-9.3); NEUTROPHILS # (AUTO) 10.6 K/uL (1.8-7.7); NEUTROPHILS % (AUTO) 88.4 % (42.2-75.2); PLATELET COUNT (AUTO) 82 K/uL (140-450); RED CELL DISTRIBUTION WIDTH 18.4 % (11.6-13.7)
--- NOTE | 2021-08-01 07:30 | NUR ---
RECEIVED REPORT FROM [facility] RESTING IN BED HOB UP 30 DEGREE. ETT TO VENT ACVC 70% VT 450 FIO2 45% . IV FLUID PICC LINE ON L UPPER ARM , DIALYSIS CATHON RT SUBCLAVIAN, MALDONADO CATH DRAIN SMALL OUT OF DARK URINE . RECTAL TUBE HAS MODERATE OF BROWN LIQUID BM,
[2021-08-01 07:56] LABS: ANION GAP 18.6 (8-16); CARBON DIOXIDE 19.2 mmol/L (21-32); CHLORIDE 97 mmol/L (98-107); GLUCOSE 177 mg/dL (74-106); POTASSIUM 3.8 mmol/L (3.5-5.1); SODIUM SERUM 131 mmol/L (136-145); UREA NITROGEN, BLOOD 50 mg/dL (7-18)
--- NOTE | 2021-08-01 08:16 | NUR ---
PATIENT HAS BEEN SCREENED AND CATEGORIZED HIGH NUTRITION RISK. PATIENT WILL BE SEEN WITHIN 1-2 DAYS OF ADMISSION. 08/01/[address]
[2021-08-01 08:21] LABS: CREATININE 4.6 mg/dL (0.6-1.3)
[2021-08-01 08:42] LABS: MAGNESIUM 1.9 mg/dL (1.8-2.4); PHOSPHORUS 3.6 mg/dL (2.5-4.9)
[2021-08-01] MEDS: CALCIUM ACETATE 667 MG TAB PO SCH ×3 (08:50→17:51)
[2021-08-01] MEDS: PANTOPRAZOLE 40 MG INJ VIAL IVP SCH (08:51)
[2021-08-01] MEDS: APIXABAN 2.5 MG TAB PO SCH (08:51)
[2021-08-01] MEDS: VIT-B COMP/VIT-C/FOLIC ACID 1 TAB PO SCH (08:51)
[2021-08-01] MEDS: GABAPENTIN 300 MG CAP PO SCH (08:52)
--- NOTE | 2021-08-01 09:15 | NUR ---
SEEN BY SHANNAN GIL, ORDER RECEIVED, WILL HAVE HEMODIALYSIS IN AM.
--- NOTE | 2021-08-01 10:00 | NUR ---
SEEN BY DR SANTIZO AT BED SIDE , NO ORDER CHANGED.
[2021-08-01] MEDS: NACL 0.9% 1,000 ML IV SCH (10:20)
--- NOTE | 2021-08-01 11:30 | NUR ---
NOTICE STOOL IN RECTAL TUBE IS BRIGHT RED BLOOD., CALL NOTIFIED DR. SYLVESTER INFORMED.
--- NOTE | 2021-08-01 14:01 | NUR ---
DR. SANTIZO APPROVED INITIATION FOR TUBE FEEDINGS.
--- NOTE | 2021-08-01 14:22 | NUR ---
SEEN BY DR WILLS AT BED SIDE, HE SAID THE BLEEDING FRON RECTUM IS INDUCE FRON RECTUM TUBE . ORDERED TO D/C RECTUM TUBE.
--- NOTE | 2021-08-01 15:00 | NUR ---
RECTAL TUBE D/C , NPO EXCEPT MED,.
--- NOTE | 2021-08-01 15:55 | NUR ---
08/01/21 RD INITIAL ASSESSMENT COMPLETED PLEASE REFER TO NUTRITION ASSESSMENT UNDER CARE ACTIVITY FOR ESTIMATED NUTRITIONAL NEEDS. 1. CURRENTLY NPO EXCEPT MEDS 2. IF/WHEN MEDICALLY STABLE RECOMMEND NEPRO @ 35 ML/HR. FREE WATER FLUSH OF 95 ML Q4H -THIS WILL PROVIDE 840 ML OF VOLUME, 1512 KCAL/DAY AND 68 GM OF PROTEIN/DAY, MEETING ADEQUATE NUTRIENT NEEDS 3. IF/WHEN PATIENT IS EXTUBATED CONSIDER A SWALLOW EVALUATION FOR PO INTAKE 4. RD TO FOLLOW-UP 2-3 DAYS, HIGH RISK EVER FR[address]LIN RD
[2021-08-01] MEDS: CEFEPIME 500 MG in DEXTROSE 5% 50 ML IV SCH (16:00)
--- NOTE | 2021-08-01 17:13 | NUR ---
D/C LEVOPHED IV DRIP.
--- NOTE | 2021-08-01 19:12 | NUR ---
RESTING COMFORTABLY NO DISTRESS NOTED GOOD CHEST RISE AND AERATION LEFT SIDE RUL RML AIRWAY PATENT
--- NOTE | 2021-08-01 19:15 | NUR ---
RECEIVED PATIENT ON BED WITH HOB ELEVATED TO 30 DEGREE; OBTUNDED; ORALLY INTUBATED AND VENTILATED AT 40% FIO2. CARDIACSCOPE SHOWS ON ATRIAL FIB WITH RVR HR 119/MIN. IVF IN PROGRESS NORMAL SALINE AT 10 ML/HR VIA PICC LINE TO LEFT ARM; PATENT AND INTACT.ABDOMEN IS SOFT , HYPOACTIVE BOWEL SOUND;WITH NGT IN SITU; CLAMPED, ON NPO EXCEPT MEDS. WITH MALDONADO CATH IN PLACE TO GRAVITY DRAINAGE BAG; PATENT AND INTACT.
--- NOTE | 2021-08-01 20:30 | NUR ---
TURNED AND REPOSITIONED PATIENT; HAD BM TO MODERATE AMOUNT OF MUCOID WITH BLOOD STREAKED STOOL;KEPT CLEAN DRY AND COMFORTABLE.
[2021-08-02] VITALS (24 sets, daily range): BP systolic 112–154; BP diastolic 54–76
--- NOTE | 2021-08-02 04:00 | NUR ---
MORNING BED BATH DONE; PATIENT STILL IN AFIB WITH RVR.
[2021-08-02 06:47] LABS: BASOPHILS % (AUTO) 0.1 % (0.0-2.0); EOSINOPHILS % (AUTO) 0.1 % (0.0-4.0); HEMATOCRIT 30.7 % (36-48); LYMPHOCYTES # (AUTO) 0.3 K/uL (2.5-16.5); LYMPHOCYTES % (AUTO) 2.6 % (20.5-51.1); MEAN CORPUSCULAR HEMOGLOBIN 30 pg (27-31); MEAN CORPUSCULAR HGB CONC 33 g/dL (33-37); MEAN CORPUSCULAR VOLUME 90.8 fL (80-94); MONOCYTES # (AUTO) 0.6 K/uL (0.8-1.0); MONOCYTES % (AUTO) 5.3 % (1.7-9.3); NEUTROPHILS # (AUTO) 9.7 K/uL (1.8-7.7); NEUTROPHILS % (AUTO) 91.9 % (42.2-75.2); PLATELET COUNT (AUTO) 92 K/uL (140-450); RED BLOOD CELL COUNT(AUTO) 3.38 MIL/uL (4.20-5.40); RED CELL DISTRIBUTION WIDTH 17.4 % (11.6-13.7); WHITE BLOOD COUNT (AUTO) 10.6 K/uL (4.8-10.8)
[2021-08-02 07:09] LABS: ALBUMIN 2.4 g/dL (3.4-5.0); ANION GAP 16.2 (8-16); ASPARTATE AMINOTRANSFERASE 46 U/L (15-37); CARBON DIOXIDE 20.7 mmol/L (21-32); CHLORIDE 97 mmol/L (98-107); GLUCOSE 58 mg/dL (74-106); PHOSPHORUS 3.6 mg/dL (2.5-4.9); POTASSIUM 3.9 mmol/L (3.5-5.1); SODIUM SERUM 130 mmol/L (136-145); TOTAL BILIRUBIN 1.1 mg/dL (0.0-1.0); UREA NITROGEN, BLOOD 59 mg/dL (7-18)
[2021-08-02 07:15] LABS: CREATININE 5.1 mg/dL (0.6-1.3)
[2021-08-02] MEDS: BLOOD GLUCOSE MONITORING 1 DEV DEV FS SCH ×2 (07:30→11:30)
--- NOTE | 2021-08-02 07:36 | NUR ---
RECEIVED ON VIASYS KNOTT VENTILATOR PLUGGED INTO RED OUTLET TOLERATING WELL WITHOUT ADVERSE REACTIONS NOTED TO AN ENDOTRACHEAL TUBE #7.5 SECURED AT 24cm TEETH/GUMLINE WITH AN ANCHOR FAST CUFF PRESSURE CHECKED NOTED STABLE GOOD CHEST RISE DEEP TRACHEAL SUCTION FOR LARGE SEMI THICK YELLOW SECRETIONS WITH FEW PLUGS AIRWAY PATENT
[2021-08-02] MEDS: PANTOPRAZOLE 40 MG INJ VIAL IVP SCH (08:26)
[2021-08-02] MEDS: CALCIUM ACETATE 667 MG TAB PO SCH ×2 (08:26→12:00)
[2021-08-02] MEDS: VIT-B COMP/VIT-C/FOLIC ACID 1 TAB PO SCH (08:26)
[2021-08-02] MEDS: GABAPENTIN 300 MG CAP PO SCH (08:27)
--- NOTE | 2021-08-02 08:50 | NUR ---
SEEN BY DR. CAMPBELL AT BED SIDE, ORDER RECEIVED.
--- NOTE | 2021-08-02 08:53 | NUR ---
SEEN BY DR. KEARNS AT BED SIDE ,HE WILL CALL THE DAUGHTER TO UPDATE PATIENT CONDITION.
--- NOTE | 2021-08-02 09:00 | NUR ---
BLOOD GLUCOSE FINGES STICK 29 D 50 % 50 ML GIVEN.
--- NOTE | 2021-08-02 09:15 | NUR ---
SEEN BY DR. CAMPBELL , ORDER RECEIVED.
--- NOTE | 2021-08-02 09:20 | NUR ---
HEMODIALYSIS STARTED PT VITAL SIGN WITHIN NORMAL LIMIT.
--- NOTE | 2021-08-02 09:30 | NUR ---
BL. GLUCOSE RECHECK 98 .
--- NOTE | 2021-08-02 10:11 | NUR ---
STABLE GOOD CHEST RISE AND AERATION THROUGHOUT BILATERAL LUNG ESTEVEZ AIRWAY PATENT SATURATION 100% ON FIO2 OF 35% PEEP 5cmH2O TITRATED FIO2 TO 32% ABDI/RN NOTIFIED HEMODIALYSES IN PROGRESS
[2021-08-02] MEDS: NACL 0.9% 1,000 ML IV SCH (10:20)
--- NOTE | 2021-08-02 12:00 | NUR ---
BLOOD GLUCOSE 103 NO INSULIN GIVEN.
--- NOTE | 2021-08-02 12:20 | NUR ---
HEMO DIALYSIS COMPLETED LEMOVED 1500ML OF FLUID HER VITAL SIGN WITH IN NORMAL LIMIT.
[2021-08-02] MEDS ORDERED: MORPHINE SULFATE 100 MG in NACL 0.9% 90 ML IV PRN (13:40)
--- NOTE | 2021-08-02 14:08 | NUR ---
RESTING WELL GOOD CHEST RISE ENDOTRACHEAL SUCTION FOR MODERATE SEMI THICK YELLOW WITH BLOOD TINGE SECRETIONS AIRWAY PATENT
[2021-08-02] MEDS: CEFEPIME 500 MG in DEXTROSE 5% 50 ML IV SCH (16:22)
--- NOTE | 2021-08-02 16:30 | NUR ---
SEEN BY DR CAMPBELL AFTER HE TALK TO PT. DAUGHTER ORDERED PALITIVE CARE .STOP A
--- NOTE | 2021-08-02 16:55 | NUR ---
JANUARY CARLSON VISIT HER AT BEDSIDE .SHE HAS ALL PPE ON
[2021-08-02] MEDS ORDERED: VANCOMYCIN 500 MG VIAL PO SCH (18:00)
[2021-08-02] MEDS ORDERED: VANCOMYCIN HCL 25 MG/ML SOLN PO SCH ×2 (18:00)
--- NOTE | 2021-08-02 19:16 | NUR ---
MORPHINE DRIP IN PROGRESS . REPORT GIVE TO ANTIONE DELGADILLO.
--- NOTE | 2021-08-02 19:20 | NUR ---
RECEIVED PATIENT ON BED ORALLY INTUBATED AND VENTILATED AT 35% FIO2 AND FOR TERMINAL EXTUBATION TONIGHT ENDORSED BY DAY SHIFT NURSE. PATIENT IS ALREADY ON MORPHINE DRIP AT 7 MG/HR VIA PICC LINE TO LEFT UPPER ARM; PATENT AND INTACT. CARDIACSCOPE SHOWS ON ATRIAL FIB WITH RVR HR 104/MIN.
--- NOTE | 2021-08-02 19:40 | NUR ---
SPOKE ON THE PHONE WITH PATIENT'S DAUGHTERALDO BEFORE GOING AHEAD ON EXC Addendum: 08/02/21 at 2014 by Marah Lyons RN CONTINUATION: BEFORE GOING AHEAD ON EXTUBATING THE PATIENT; SHE SAID ITS' OKAY!
--- NOTE | 2021-08-02 20:00 | NUR ---
PATIENT WAS EXTUBATED BY THE RT; PUT PATIENT ON 2 LITERS NC THEREAFTER; CONTINOUS OBSERVATION AND MONITORING DONE.
--- NOTE | 2021-08-02 20:00 | NUR ---
PER FAMILY REQUEST AND DR ORDER MV HAS BEEN D/C TERMINAL EXT. HAS BEEN PERFORMED PT PLACED ON NC FOR COMFORT
--- NOTE | 2021-08-02 21:30 | NUR ---
PAT[facility].
--- NOTE | 2021-08-02 22:00 | NUR ---
BODY REPORTED TO [facility].
--- NOTE | 2021-08-03 01:00 | NUR ---
BODY TAKEN BY [facility]
== END 2021-08-02 21:30 | DRG 208 ==
LOC: MED 15:52 → MMU 07-30 10:31 → MTU 07-30 15:27 → MIC 07-31 07:35
PROVIDERS: ADMIT Family Medicine; ATTEND Family Medicine
PROC: 05HY33Z Insertion of Infusion Device into Upper Vein, Percutaneous Approach (ICD-10-PCS; principal; 2021-07-31)
PROC: 5A1945Z Respiratory Ventilation, 24-96 Consecutive Hours (ICD-10-PCS; 2021-07-31)
PROC: 5A12012 Performance of Cardiac Output, Single, Manual (ICD-10-PCS; 2021-07-31)
PROC: 0BH17EZ Insertion of Endotracheal Airway into Trachea, Via Natural or Artificial Opening (ICD-10-PCS; 2021-07-31)
DX: U07.1 COVID-19 (principal); N17.0 Acute kidney failure with tubular necrosis; I50.43 Acute on chronic combined systolic (congestive) and diastolic (congestive) heart failure; J12.82 Pneumonia due to coronavirus disease 2019; J96.01 Acute respiratory failure with hypoxia; N18.6 End stage renal disease; I21.A1 Myocardial infarction type 2; E87.1 Hypo-osmolality and hyponatremia; K62.5 Hemorrhage of anus and rectum; K62.6 Ulcer of anus and rectum; I13.2 Hypertensive heart and chronic kidney disease with heart failure and with stage 5 chronic kidney disease, or end stage renal disease; I42.9 Cardiomyopathy, unspecified; G93.40 Encephalopathy, unspecified; D63.8 Anemia in other chronic diseases classified elsewhere; D69.6 Thrombocytopenia, unspecified; E11.22 Type 2 diabetes mellitus with diabetic chronic kidney disease; E11.649 Type 2 diabetes mellitus with hypoglycemia without coma; F03.90 Unspecified dementia, unspecified severity, without behavioral disturbance, psychotic disturbance, mood disturbance, and anxiety; K21.9 Gastro-esophageal reflux disease without esophagitis; F32.9 Major depressive disorder, single episode, unspecified; I25.10 Atherosclerotic heart disease of native coronary artery without angina pectoris; I48.0 Paroxysmal atrial fibrillation; Z88.0 Allergy status to penicillin; Z86.74 Personal history of sudden cardiac arrest; Z90.49 Acquired absence of other specified parts of digestive tract; Z90.710 Acquired absence of both cervix and uterus; Z95.1 Presence of aortocoronary bypass graft; Z68.32 Body mass index [BMI] 32.0-32.9, adult; Z79.899 Other long term (current) drug therapy; Z99.81 Dependence on supplemental oxygen
CPT/HCPCS: 36415; 36600; 70450; 71045; 80048; 80053; 82150; 82272; 82803; 82948; 83036; 83690; 83735; 83880; 84100; 84439; 84443; 84484; 85025; 85610; 85730; 87040; 87070; 87081; 90935; 93005; 94002; 94003; 99285; C9113; J0282; J0692; J1644; J1940; J2270; J3475; J3490; J7060; Q0092; U0003